=== PATIENT | female | born 1985 ===

== ENCOUNTER 2016-09-27 19:56 | Observation (INO) | payer MEDICAID, OTHER ==
[2016-09-27 20:12] VITALS: BMI 24.9
[2016-09-27] MEDS ORDERED: Sodium Chloride 0.9% 1,000 ML IV STA (20:38)
--- NOTE | 2016-09-27 20:45 | C.PDOC ---
History Of Present Illness 31 year old patient, with no significant past medical history, presents to the ED complaining of abdominal pain for the past 9 hours. Patient reports the pain began in the epigastric region, but now is mostly in the left lower quadrant. The pain is worse with movement and palpation. She notes the pain is severe. Patient also complains of 3 episodes of nausea and non-bloody vomiting. Her menstrual cycle is 2 weeks late. She took an at-home test today which was negative. She also took Imodium with no relief of symptoms. Patient denies any diarrhea, fever, vaginal bleeding, vaginal discharge, or back pain. Time Seen by Provider: 09/27/16 20:30 Chief Complaint (Nursing): Abdominal Pain History Per: Patient History/Exam Limitations: no limitations Onset/Duration Of Symptoms: Hrs (9 hours prior to arrival) Current Symptoms Are (Timing): Still Present Context: Other Severity: Severe Pain Scale Rating Of: 8 Location Of Pain/Discomfort: LLQ Radiation Of Pain To:: None Quality Of Discomfort: "Pain" Associated Symptoms: Nausea, Vomiting Exacerbating Factors: Movement, Other (palpation) Alleviating Factors: None Last Bowel Movement: Today Recent travel outside of the [place]: No Abnormal Vaginal Bleeding: No Past Medical History Reviewed: Historical Data, Nursing Documentation, Vital Signs Vital Signs: Last Vital Signs Temp 98.1 F 09/29/16 08:43 Pulse 97 H 09/29/16 08:43 Resp 18 09/29/16 08:43 BP 118/80 09/29/16 08:43 Pulse Ox 98 09/29/16 08:43 Family History: States: No Known Family Hx - Social History Hx Alcohol Use: No Hx Substance Use: No - Immunization History Hx Tetanus Toxoid Vaccination: Yes Hx Influenza Vaccination: Yes Hx Pneumococcal Vaccination: No Review Of Systems Except As Marked, All Systems Reviewed And Found Negative. Constitutional: Negative for: Fever Gastrointestinal: Positive for: Nausea, Vomiting, Abdominal Pain (LLQ). Negative for: Diarrhea Genitourinary: Negative for: Vaginal Discharge, Vaginal Bleeding Musculoskeletal: Negative for: Back Pain Physical Exam - Physical Exam Additional Physical Exam Comments: Constitutional: No acute distress. Head: Normocephalic. Atraumatic. Eyes: PERRL. ENT: Moist mucous membranes. Neck: Supple. Cardiovascular: Regular rate. Radial pulses 2+ bilaterally. Chest: No tenderness. Respiratory: Clear to auscultation bilaterally. GI: Soft. LLQ tenderness. Nondistended. Back: No tenderness. Musculoskeletal: No tenderness or swelling of extremities. Skin: No rash. Neurologic: Alert, no focal deficit. ED Course And Treatment - Laboratory Results Result Diagrams: 09/29/16 05:53 09/27/16 20:54 O2 Sat by Pulse Oximetry: 100 (RA) Pulse Ox Interpretation: Normal Medical Decision Making Medical Decision Making: Plan: * Labs * Transvaginal US * Morphine, IV fluids, Zofran Transvaginal US Read by Radiologist: Caridad Field MD FINDINGS: Uterus/cervix: No intrauterine gestation is identified on the submitted images. The cervix measures 3.1 cm in length, and is closed. Right ovary: The right ovary measures 2.8 cm in greatest dimension. Within the right adnexa is an additional focus of mixed echogenicity demonstrating color flow on Doppler interrogation and measuring 2.6 cm in greatest dimension. Of note, this was the point of maximal tenderness during the examination. Left ovary: A corpus luteal cyst is detected within the enlarged left ovary. Free fluid: Complex free fluid is identified within the pelvis. IMPRESSION: Limited evaluation secondary to patient's inability to tolerate examination secondary to pain, which may represent an ectopic , as detailed above. Please correlate with the serum beta-hCG and obstetrical evaluation Consulted OBGYN public relations supervisor Dr. Sparks who agrees this is concerning for ectopic, may also be ruptured cyst. She will observe patient, trend Hb and serial abdominal exams. Disposition - Disposition Disposition: HOSPITALIZED Disposition Time: 23:04 Condition: GOOD - Clinical Impression Clinical Impression: Abdominal pain during - Scribe Statement The provider has reviewed the documentation as recorded by the Monica Herrera Provider Attestation: All medical record entries made by the Jerseyibfranky were at my direction and personally dictated by me. I have reviewed the chart and agree that the record accurately reflects my personal performance of the history, physical exam, medical decision making, and the department course for this patient. I have also personally directed, reviewed, and agree with the discharge instructions and disposition.
[2016-09-27] MEDS ORDERED: Sodium Chloride 0.9% 1,000 ML ONE (20:53)
[2016-09-27] MEDS ORDERED: Morphine 4 MG/ML VIAL ONE (20:53)
[2016-09-27 21:05] LABS: BASO # 0.1 K/uL (0.0-0.2); BASO % 0.4 % (0.0-2.0); EOS % 0.1 % (0.0-4.0); HEMATOCRIT 37.8 % (34.0-47.0); LYMPH # 1.5 K/uL (1.0-4.3); LYMPH % 9.6 % (20.0-40.0); MEAN CELL VOLUME 84.5 fL (81.0-99.0); MEAN CORPUSCULAR HGB CONC 33.2 g/dL (33.0-37.0); MEAN PLATELET VOLUME 7.9 fL (7.2-11.7); MONO # 0.4 K/uL (0.0-0.8); MONO % 2.6 % (0.0-10.0); PLATELET COUNT 380 K/uL (130-400); RED CELL DISTRIBUTION WIDTH 15.3 % (11.5-14.5); WHITE BLOOD COUNT 15.9 K/uL (4.8-10.8)
[2016-09-27 21:17] LABS: CHLORIDE 96 mmol/L (98-107); SODIUM 133 mmol/L (132-148)
[2016-09-27 21:18] LABS: POTASSIUM 3.7 mmol/L (3.6-5.2)
[2016-09-27 21:19] LABS: RBC URINE 1 /hpf (0-3); URINE BACTERIA RARE (<OCC); URINE BILIRUBIN NEGATIVE (NEGATIVE); URINE COLOR Yellow (YELLOW); URINE GLUCOSE (UA) NORMAL (Normal); URINE KETONE TRACE mg/dL (NEGATIVE); URINE PROTEIN NEGATIVE (NEGATIVE); URINE UROBILINOGEN NORMAL mg/dL (0.2-1.0); WBC URINE 1 /hpf (0-5)
[2016-09-27 21:20] LABS: ALB/GLOB RATIO 1.6 (1.0-2.1); ALKALINE PHOSPHATASE 85 U/L (38-126); AST/SGOT 20 U/L (14-36); BILIRUBIN,TOTAL 0.2 mg/dL (0.2-1.3); BLOOD UREA NITROGEN 6 mg/dL (7-17); CARBON DIOXIDE 21 mmol/L (22-30); GFR AFRICAN-AMERICAN > 60; GLUCOSE,RANDOM 132 mg/dL (65-105); TOTAL PROTEIN 6.8 g/dL (6.3-8.3)
[2016-09-27 21:21] LABS: ALT/SGPT 21 U/L (9-52); CALCIUM 8.7 mg/dl (8.6-10.4)
[2016-09-27 21:21] LABS: URINE BLOOD NEGATIVE (NEGATIVE); URINE LEUKOCYTE ESTERASE NEGATIVE Leu/uL (Negative)
[2016-09-27] MEDS ORDERED: Iohexol 350mg/ml 100 ML ONE (21:47)
[2016-09-27 22:23] LABS: NEUTROPHIL 88 % (50-75); TOTAL CELLS COUNTED 100
--- NOTE | 2016-09-27 23:35 | CP.PCM.HP ---
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 Patient reports the pain began in the epigastric region, but now is mostly in the left lower quadrant. The pain is worse with movement and palpation. Patient also reports having spotting.last intercourse 1 week ago.She denies feeling light headed or dizzy.Denies palpitation or shortness of breath Pmh denies PSH csection OBGYN HX ; csectionx1; lmp 08/20/16 Social hx -past hx of smoking.stopped 3 months ago. Present on Admission - Present on Admission Any Indicators Present on Admission: No Review of Systems - Review of Systems All systems: reviewed and no additional remarkable complaints except - Cardiovascular Cardiovascular: absent: Chest Pain, Diaphoresis, Rapid Heart Rate - Respiratory Respiratory: absent: Cough, Dyspnea - Gastrointestinal Gastrointestinal: Abdominal Pain - Reproductive: Female Additional comments: DELAYED MENSES; POSITIVE URINE TEST - Musculoskeletal Musculoskeletal: absent: Back Pain, Numbness, Tingling - Integumentary Integumentary: absent: Rash, Wounds - Neurological Neurological: absent: Numbness, Tingling, Tremor, Vertigo, Weakness - Psychiatric Psychiatric: absent: Anxiety, Depression Past Patient History - Infectious Disease Hx of Infectious Diseases: None - Past Medical History & Family History Past Medical History?: Yes Past Family History: Reviewed and not pertinent - Past Social History Smoking Status: Former Smoker - CARDIAC Hx Cardiac Disorders: No - PULMONARY Hx Respiratory Disorders: No - NEUROLOGICAL Hx Neurological Disorder: No - RENAL Hx Chronic Kidney Disease: No - ENDOCRINE/METABOLIC Hx Endocrine Disorders: No - HEMATOLOGICAL/ONCOLOGICAL Hx Blood Disorders: No - MUSCULOSKELETAL/RHEUMATOLOGICAL Hx Musculoskeletal Disorders: No - GASTROINTESTINAL Hx Gastrointestinal Disorders: No - GENITOURINARY/GYNECOLOGICAL LMP:: 08/20/16 : 2 Para: 1 - PSYCHIATRIC Hx Anxiety: No Hx Sexual Abuse: No Hx Substance Use: No - SURGICAL HISTORY Hx Section: Yes - ANESTHESIA Hx Anesthesia: Yes Hx Anesthesia Reactions: No Meds Allergies/Adverse Reactions: Allergies Allergy/AdvReac Type Severity Reaction Status Date / Time No Known Allergies Allergy Verified 09/27/16 20:11 Physical Exam - Constitutional Appears: No Acute Distress - Respiratory Exam Respiratory Exam: Clear to Auscultation Bilateral, NORMAL BREATHING PATTERN - Cardiovascular Exam Cardiovascular Exam: REGULAR RHYTHM, +S1, +S2 - GI/Abdominal Exam GI & Abdominal Exam: Soft, Tenderness. absent: Distended, Guarding, Rebound, Rigid - Exam External exam: NORMAL EXTERNAL EXAM Speculum exam: absent: Cervical Discharge, Vaginal Discharge Bimanual exam: absent: Adenexal Mass, Uterine Tenderness - Extremities Exam Extremities exam: Negative for: calf tenderness - Back Exam Back exam: absent: CVA tenderness (L), CVA tenderness (R) - Neurological Exam Neurological exam: Alert, Oriented x3 - Psychiatric Exam Psychiatric exam: Normal Affect, Normal Mood - Skin Skin Exam: Intact, Normal Color, Warm Results - Vital Signs Recent Vital Signs: Last Vital Signs Temp 97.7 F 09/27/16 20:12 Pulse 93 H 09/27/16 20:12 Resp 20 09/27/16 20:12 BP 157/104 H 09/27/16 20:12 Pulse Ox 100 09/27/16 23:03 - Labs Result Diagrams: 09/27/16 20:54 09/27/16 20:54 - Imaging and Cardiology PELVIC ULTRASOUND Status: Report reviewed by me Additional comment: Transvaginal US Read by Radiologist: Caridad Field MD FINDINGS: Uterus/cervix: No intrauterine gestation is identified on the submitted images. The cervix measures 3.1 cm in length, and is closed. Right ovary: The right ovary measures 2.8 cm in greatest dimension. Within the right adnexa is an additional focus of mixed echogenicity demonstrating color flow on Doppler interrogation and measuring 2.6 cm in greatest dimension. Of note, this was the point of maximal tenderness during the examination. Left ovary: A corpus luteal cyst is detected within the enlarged left ovary. Free fluid: Complex free fluid is identified within the pelvis. IMPRESSION: Limited evaluation secondary to patient's inability to tolerate examination secondary to pain, which may represent an ectopic , as detailed above. Please correlate with the serum beta-hCG and obstetrical evaluation Assessment & Plan - Assessment and Plan (Free Text) Assessment: 31 y/o with lmp 08/20/16 in er with c/o left lower quadrant pain patient with no signs of acute abdomen.Vital signs [place] [facility] [place] S/p transvaginal ultrasound which was ready by V rad and showed complex free fluid in cul de sac, left ovary with corpus luteum cyst and 2.8 cm cyst in right adnexa with blood flow. Patient presenting to er with c/o left lower quadrant pain.On exam no pain on right side of abdomen or pelvic and bhcg <1500 With current clinical presentation differential includes hemorrhagic cyst versus ectopic .Patient desires this .Discussed the possible causes of pain with patient.Discussed doing laparoscopy with emb versus observation and repeat labs and then repeat scan.risks and benefits of ecah discussed.Patient desires to keep the and wants to do surgery only as last resort. Plan-admit patient -npo -serial cbc and abdominal exams -vitals signs q 2 hours -discussed with patient that if drop in hemoglobin noted or change in vitals sign or pain worsens the would recommend diagnostic laparoscopy -repeat hcg in am and await from reading of ultrasound in am. Decision To Admit - Pt Status Changed To: Hospital Disposition Of: Observation - InPatient: Physician Admission Certification:: based on my assessment of the patient in the ER , I recommend admission for observation - . 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
[2016-09-28] MEDS: Lactated Ringer's 1,000 ML IV SCH ×4 (00:10→21:06)
[2016-09-28 03:33] LABS: BASO # 0.1 K/uL (0.0-0.2); BASO % 0.5 % (0.0-2.0); EOS # 0.1 K/uL (0.0-0.7); EOS % 0.6 % (0.0-4.0); HEMATOCRIT 35.7 % (34.0-47.0); LYMPH # 2.8 K/uL (1.0-4.3); LYMPH % 22.5 % (20.0-40.0); MEAN CELL VOLUME 84.9 fL (81.0-99.0); MEAN CORPUSCULAR HEMOGLOBIN 27.2 pg (27.0-31.0); MEAN CORPUSCULAR HGB CONC 32.1 g/dL (33.0-37.0); MEAN PLATELET VOLUME 7.8 fL (7.2-11.7); MONO # 0.8 K/uL (0.0-0.8); MONO % 6.3 % (0.0-10.0); RED CELL DISTRIBUTION WIDTH 14.9 % (11.5-14.5); WHITE BLOOD COUNT 12.5 K/uL (4.8-10.8)
[2016-09-28 06:14] LABS: HEMATOCRIT 35.8 % (34.0-47.0); MEAN CORPUSCULAR HEMOGLOBIN 27.8 pg (27.0-31.0); MEAN CORPUSCULAR HGB CONC 32.7 g/dL (33.0-37.0); MEAN PLATELET VOLUME 7.8 fL (7.2-11.7); RED CELL DISTRIBUTION WIDTH 15.1 % (11.5-14.5); WHITE BLOOD COUNT 12.4 K/uL (4.8-10.8)
[2016-09-28 09:56] LABS: BASO # 0.1 K/uL (0.0-0.2); BASO % 0.8 % (0.0-2.0); EOS # 0.1 K/uL (0.0-0.7); EOS % 1.2 % (0.0-4.0); HEMATOCRIT 35.5 % (34.0-47.0); LYMPH # 2.6 K/uL (1.0-4.3); LYMPH % 24.7 % (20.0-40.0); MEAN CELL VOLUME 84.1 fL (81.0-99.0); MEAN CORPUSCULAR HEMOGLOBIN 27.9 pg (27.0-31.0); MEAN CORPUSCULAR HGB CONC 33.1 g/dL (33.0-37.0); MEAN PLATELET VOLUME 7.9 fL (7.2-11.7); MONO # 0.7 K/uL (0.0-0.8); MONO % 6.7 % (0.0-10.0); RED CELL DISTRIBUTION WIDTH 15.2 % (11.5-14.5); WHITE BLOOD COUNT 10.5 K/uL (4.8-10.8)
--- NOTE | 2016-09-28 10:49 | US ---
HISTORY: abdominal pain in , assess cervix COMPARISON: None available. TECHNIQUE: Transvaginal Technically limited examination due to patient pain. FINDINGS: UTERUS: Measures 7.9 x 9.1 x 5.2 cm. Normal in size and appearance. No fibroid or other mass lesion seen. ENDOMETRIUM: Measures 8 mm in diameter. No intrauterine gestation identified. CERVIX: No cervical abnormality identified. RIGHT OVARY: Measures 2.8 x 2.0 x 2.4 cm. No solid mass. Normal flow. Right adnexal mass separate from the ovary, 2.5 x 2.7 x 2.2 cm. This is atypical demonstrating marked posterior acoustic shadowing on some of the images and yet soft tissue echogenicity on another image. Evaluation was limited. This was the point of maximal tenderness. There was some internal vascularity demonstrated though no peripheral hypervascularity. . The possibility that this represents an ectopic gestation should be considered. LEFT OVARY: Measures 3.9 x 2.8 x 4.2 cm. No solid mass. Normal flow. Probable corpus luteum noted with characteristic peripheral hypervascularity. FREE FLUID: Complex fluid in cul-de-sac. Possibility that this represents blood products should be considered. OTHER FINDINGS: None. IMPRESSION: Limited examination. No intrauterine gestation. Atypical right adnexal mass. Must consider the possibility of ectopic gestation. Complex fluid in cul-de-sac which may represent blood products indicating a potential ruptured ectopic . Probable left ovarian corpus luteum. Preliminary interpretation of this examination was reported by [employer] at 10:47 p.m. on 09/27/2016. There is concurrence of this report with the preliminary interpretation.
--- NOTE | 2016-09-28 14:44 | CP.PCM.PN ---
Subjective - Date & Time of Evaluation Date of Evaluation: 09/28/16 Time of Evaluation: 12:35 - Subjective Subjective: Patient is Urdu-speaking only: PGY-1, Peng Gonzalez DO served as client support representative Patient received in bed, in room 451 in [facility]. Reports LLQ pain still present; now pain scale 6/10 - has received no pain medications. (+) nausea; no vomiting today. Objective - Vital Signs/Intake and Output Vital Signs (last 24 hours): Temp Pulse Resp BP Pulse Ox 97.4 F L 68 20 131/89 100 09/28/16 05:35 09/28/16 05:35 09/28/16 05:35 09/28/16 05:35 09/28/16 05:35 - Medications Medications: Current Medications Lactated Ringer's (Lactated Ringer's) 1,000 mls @ 125 mls/hr IV .Q8H [facility] Last Admin: 09/28/16 00:10 Dose: 125 mls/hr - Labs Labs: 09/28/16 09:50 - Constitutional Appears: Well, No Acute Distress - Head Exam Head Exam: NORMAL INSPECTION - Eye Exam Eye Exam: Normal appearance - Neck Exam Neck Exam: Full ROM - Respiratory Exam Respiratory Exam: NORMAL BREATHING PATTERN - Cardiovascular Exam Cardiovascular Exam: REGULAR RHYTHM - Exam Additional comments: (+) cervical motion tenderness. (+) mid position uterus, 10 weeks, soft, (+) mild uterine tenderness. (+) posterior fullness with tenderness. (+) left adnesal fullness with tenderness. No right adnexal mass or tenderness. No vaginal bleeding noted. - Extremities Exam Extremities Exam: Full ROM - Back Exam Back Exam: NORMAL INSPECTION - Neurological Exam Neurological Exam: Alert, Awake, Normal Gait, Oriented x3 - Psychiatric Exam Psychiatric exam: Normal Affect, Normal Mood - Skin Skin Exam: Dry, Normal Color, Warm Assessment and Plan - Assessment and Plan (Free Text) Assessment: Ultrasound images and report reviewed by me personally: significant for "No intrauterine gestation" .... Atypical right adnexal mass (Right adnexal mass separate from the ovary, 2.5 x 2.7 x 2.2 cm; ... atypical demonstrating marked posterior acoustic shadowing on some of the images and yet soft tissue echogenicity on another image. ... The possibility that this represents an ectopic gestation should be considered. ... Complex fluid in the cul-de-sac. Possibility that this represents blood products should be considered". Also reviewed serial CBCs - H/H stable. Patient counseled on possibility of ectopic . Options discussed were medical treatment with methotrexate versus surgery. In light of patient's pain and the atypical findings on ultrasound, surgery was recommended as the preferred route in the next step of her management. Patient expressed an understanding and agrees to surgery. R/B/C including but not limited to failed laparoscopy with conversion to open laparotomy, infection, hemorrhage, blood transfusion, repair of any damage to internal organs were discussed. Patient's questions were answered. Patient asked that this also be discussed with her via a telephone conversation: Dr. Gonzalez complied, in the presence of the patient. Patient is NPO; not eaten x 2 days. Plan: 1) Continue NPO status 2) faculty i on call medical assistant to O.R. 3) Mefoxin 2 gramms, within 1 hour prior to incision 4) story to gravity
[2016-09-28] MEDS ORDERED: cefOXitin IV 2 gm in Dextrose 50 ML IVPB ONE (15:08)
[2016-09-28] MEDS ORDERED: Propofol 10 mg/ml Inj (20 ML) ONE (16:43)
[2016-09-28] MEDS ORDERED: Midazolam 2 MG/2 ML VIAL ONE (16:43)
[2016-09-28] MEDS ORDERED: Lactated Ringer's 1,000 ML IV ONE ×2 (16:55→17:50)
[2016-09-28] MEDS ORDERED: Bupivacaine HCl 0.25% PF (10 ml) Inj ONE ×2 (17:29)
[2016-09-28] MEDS ORDERED: Rocuronium 10 mg/ml (5 ml) ONE (18:13)
[2016-09-28] MEDS ORDERED: DiphenhydrAMINE 50 mg/ml Inj IVP PRN (18:26)
[2016-09-28] MEDS ORDERED: Dexamethasone 4 mg/1 ml IVP PRN (18:26)
[2016-09-28] MEDS ORDERED: HYDROmorphone 0.5 mg/0.5 ml ISec IVP PRN (18:26)
[2016-09-28] MEDS ORDERED: Lactated Ringer's 1,000 ML IV SCH (18:30)
--- NOTE | 2016-09-28 18:55 | PCM.SURG1 ---
Surgeon's Initial Post Op Note - Surgeon's Notes Surgeon: Ammy Alfred MD Group Burner Machine: Nicho Hoyos MD Type of Anesthesia: General Endo Anesthesia Administered By: Dr. Cash Pre-Operative Diagnosis: Abdominal pain. Hemoperitoneum. of unknown location - Rule out ectopic Operative Findings: EUA: anteverted uterus 10 weeks, mobile. Fullness in posteriorly with left adnexal fullness. Uterus sounded to 10 cm. At laparoscopy: Normal uterus, adherent anteriorly to anterior abdominal wall. Normal ovaries and grossly normal fallopian tubes bilaterally; left fallopian tube mildly dilated and slightly bluish in mid-isthmic portion. (+) hemoperitoneum of approximately 50 cc, admixed with possible products of conception. Grossly normal upper abdominal organs Post-Operative Diagnosis: Possible aborted left ectopic ; hemoperitoneum. Pelvic peritoneal adhesions Operation Performed: Laparoscopy with evacuation of possible products of conception and hemoperitoneum Specimen/Specimens Removed: Products of conception Estimated Blood Loss: EBL {In ML}: 50 (U.O. 900 cc, clear urine. 1300 cc LR) Blood Products Given: N/A Drains Used: No Drains Post-Op Condition: Good Date of Surgery/Procedure: 09/28/16 Time of Surgery/Procedure: 18:25
[2016-09-29] MEDS: Oxycodone/Acetaminophen 5/325 mg Tab PO PRN ×2 (04:50→13:41)
[2016-09-29 06:01] LABS: HEMATOCRIT 34.3 % (34.0-47.0); MEAN CELL VOLUME 84.5 fL (81.0-99.0); MEAN CORPUSCULAR HEMOGLOBIN 27.7 pg (27.0-31.0); MEAN CORPUSCULAR HGB CONC 32.8 g/dL (33.0-37.0); MEAN PLATELET VOLUME 7.7 fL (7.2-11.7); RED CELL DISTRIBUTION WIDTH 15.2 % (11.5-14.5); WHITE BLOOD COUNT 10.9 K/uL (4.8-10.8)
--- NOTE | 2016-09-29 07:54 | CP.PCM.PN ---
Subjective - Date & Time of Evaluation Date of Evaluation: 09/29/16 Time of Evaluation: 07:50 - Subjective Subjective: Sara Brown serves as nurse instructor Patient received in bed, room 451, asleep and easily awakened. also present Patient reports incisional pain, pain scale 4/10; and discomfort upon urination. Has not been out of bed to ambulate; not eaten anything before and now after surgery. Denies nausea or vomiting. Not very hungry Objective - Vital Signs/Intake and Output Vital Signs (last 24 hours): Temp Pulse Resp BP Pulse Ox 97.7 F 84 20 116/69 99 09/29/16 00:00 09/29/16 00:00 09/29/16 00:00 09/29/16 00:00 09/29/16 00:00 - Medications Medications: Current Medications Lactated Ringer's (Lactated Ringer's) 1,000 mls @ 125 mls/hr IV .Q8H [facility] Last Admin: 09/28/16 21:06 Dose: 125 mls/hr Lactated Ringer's (Lactated Ringer's) 1,000 mls @ 150 mls/hr IV .Q6H40M [facility] Last Admin: 09/28/16 21:07 Dose: 150 mls/hr Ibuprofen (Motrin Tab) 600 mg PO Q6 PRN PRN Reason: Pain, Mild (1-3) Oxycodone/Acetaminophen (Percocet 5/325 Mg Tab) 1 tab PO Q4H PRN PRN Reason: Pain, moderate (4-7) Stop: 10/01/16 18:47 Last Admin: 09/29/16 04:50 Dose: 1 tab - Labs Labs: 09/29/16 05:53 - Constitutional Appears: Well, No Acute Distress - Head Exam Head Exam: NORMAL INSPECTION - Eye Exam Eye Exam: Normal appearance - Neck Exam Neck Exam: Full ROM - Respiratory Exam Respiratory Exam: Clear to Ausculation Bilateral, NORMAL BREATHING PATTERN - Cardiovascular Exam Cardiovascular Exam: REGULAR RHYTHM - GI/Abdominal Exam GI & Abdominal Exam: Normal Bowel Sounds Additional comments: Soft, non distended. Laparoscopy sites with dressings are clean and dry. - Neurological Exam Neurological Exam: Alert, Awake, Oriented x3 - Psychiatric Exam Psychiatric exam: Normal Affect, Normal Mood - Skin Skin Exam: Dry, Normal Color, Warm Assessment and Plan - Assessment and Plan (Free Text) Assessment: Maryuri Cool R.N. serves as nurse instructor Findings at surgery explained to patient and : removal of blood clots and possibly products of conception. It was also explained that both tubes appeared grossly normal, though there was one small area of slight swelling of the left tube. At the same time, today's quantitative HCG level has increased to a level that warrants obtaining serial quantitative levels as patient desires . It was also explained that the possibility of an ectopic still exits, and the importance of follow up every 48 hours was stressed. Patient was also counseled that if she experiences excruciating pain, shoulder pain, loss of consciousness, or general overall malaise, to return to E.D. Patient and expressed an understanding; all of their questions and concerns were answered and addressed. Plan: 1) serum progesterone level now 2) Encourage eating 3) Encourage ambulation 4) Upon discharge, follow up E.D. Saturday and Saturday for quantative HCG and progesterone levels. 5) Pain medications upon discharge: motrin 600 mg 1 tab every 6 hours, PRN
--- NOTE | 2016-09-29 08:09 | CP.PCM.DIS ---
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 Priority: Low Diagnosis Date: 09/28/16 Hospital Course - Lab Results Lab Results: Most Recent Lab Values WBC 10.9 K/uL (4.8-10.8) H 09/29/16 05:53 RBC 4.06 Mil/uL (3.80-5.20) 09/29/16 05:53 Hgb 11.2 g/dL (11.0-16.0) 09/29/16 05:53 Hct 34.3 % (34.0-47.0) 09/29/16 05:53 MCV 84.5 fL (81.0-99.0) 09/29/16 05:53 MCH 27.7 pg (27.0-31.0) 09/29/16 05:53 MCHC 32.8 g/dL (33.0-37.0) L 09/29/16 05:53 RDW 15.2 % (11.5-14.5) H 09/29/16 05:53 Plt Count 318 K/uL (130-400) 09/29/16 05:53 MPV 7.7 fL (7.2-11.7) 09/29/16 05:53 Neut % (Auto) 66.6 % (50.0-75.0) 09/28/16 09:50 Lymph % (Auto) 24.7 % (20.0-40.0) 09/28/16 09:50 [place] % (Auto) 6.7 % (0.0-10.0) 09/28/16 09:50 Eos % (Auto) 1.2 % (0.0-4.0) 09/28/16 09:50 Baso % (Auto) 0.8 % (0.0-2.0) 09/28/16 09:50 Neut # 7.0 K/uL (1.8-7.0) 09/28/16 09:50 Lymph # 2.6 K/uL (1.0-4.3) 09/28/16 09:50 [place] # 0.7 K/uL (0.0-0.8) 09/28/16 09:50 Eos # 0.1 K/uL (0.0-0.7) 09/28/16 09:50 Baso # 0.1 K/uL (0.0-0.2) 09/28/16 09:50 Neutrophils % (Manual) 88 % (50-75) H 09/27/16 20:54 Lymphocytes % (Manual) 10 % (20-40) L 09/27/16 20:54 Monocytes % (Manual) 2 % (0-10) 09/27/16 20:54 Platelet Estimate Normal (NORMAL) 09/27/16 20:54 Sodium 133 mmol/L (132-148) 09/27/16 20:54 Potassium 3.7 mmol/L (3.6-5.2) 09/27/16 20:54 Chloride 96 mmol/L (98-107) L 09/27/16 20:54 Carbon Dioxide 21 mmol/L (22-30) L 09/27/16 20:54 Anion Gap 20 (10-20) 09/27/16 20:54 BUN 6 mg/dL (7-17) L 09/27/16 20:54 Creatinine 0.5 MG/DL (0.7-1.2) L 09/27/16 20:54 Est GFR ( Amer) > 60 09/27/16 20:54 Est GFR (Non-Af Amer) > 60 09/27/16 20:54 Random Glucose 132 mg/dL (65-105) H 09/27/16 20:54 Calcium 8.7 mg/dl (8.6-10.4) 09/27/16 20:54 Total Bilirubin 0.2 mg/dL (0.2-1.3) 09/27/16 20:54 AST 20 U/L (14-36) 09/27/16 20:54 ALT 21 U/L (9-52) 09/27/16 20:54 Alkaline Phosphatase 85 U/L (38-126) 09/27/16 20:54 Total Protein 6.8 g/dL (6.3-8.3) 09/27/16 20:54 Albumin 4.2 g/dL (3.5-5.0) 09/27/16 20:54 Globulin 2.6 gm/dL (2.2-3.9) 09/27/16 20:54 Albumin/Globulin Ratio 1.6 (1.0-2.1) 09/27/16 20:54 Lipase 72 U/L (23-300) 09/27/16 20:54 Beta HCG, Quant 340.04 mIU/ML 09/29/16 05:53 Urine Color Yellow (YELLOW) 09/27/16 21:21 Urine Clarity Clear (Clear) 09/27/16 21:21 Urine pH 7.0 (5.0-8.0) 09/27/16 21:21 Ur Specific [place] 1.011 (1.003-1.030) 09/27/16 21:21 Urine Protein Negative mg/dL (NEGATIVE) 09/27/16 21:21 Urine Glucose (UA) Normal mg/dL (Normal) 09/27/16 21:21 Urine Ketones Trace mg/dL (NEGATIVE) 09/27/16 21:21 Urine Blood Negative (NEGATIVE) 09/27/16 21:21 Urine Nitrate Negative (NEGATIVE) 09/27/16 21:21 Urine Bilirubin Negative (NEGATIVE) 09/27/16 21:21 Urine Urobilinogen Normal mg/dL (0.2-1.0) 09/27/16 21:21 Ur Leukocyte Esterase Negative F[place]ad/uL (Negative) 09/27/16 21:21 Urine WBC (Auto) 1 /hpf (0-5) 09/27/16 21:21 Urine RBC (Auto) 1 /hpf (0-3) 09/27/16 21:21 Ur Squamous Epith Cells 5 /hpf (0-5) 09/27/16 21:21 Urine Bacteria Rare (<OCC) 09/27/16 21:21 Blood Type O POSITIVE 09/28/16 00:17 Antibody Screen Negative 09/28/16 00:17 - Hospital Course Hospital Course: Patient admitted for observation for possible ectopic . Transvaginal ultrasound with findings of mixed tissue in cul-de-sac suggestive of ectopic . Based on these findings, quantitative HCG 92 mIU/mL and abdominal pain 01/31, patient counseled for surgery. Patient agreed and underwent uneventful laparoscopy 09/28/16 (see operative note) with evacuation of blood clots and possible products of conception. Post operatively patient's quantitative HCG level increased to 342 MIUM/mL. Patient counseled on possibility of intrauterine ; however, possibility of ectopic still exists. To this end, patient to follow up with serial quantitative HCG level every 48 hours until can be established as intrauterine or ectopic. In the unlikely event ectopic is determined, patient was counseled on methotrexate as an option for additional management. Patient expressed an understanding and agrees. Patient and had all questions answered. - Date & Time of H&P Date of H&P: 09/27/16 Time of H&P: 23:50 Discharge Exam - Head Exam Head Exam: NORMAL INSPECTION - Eye Exam Eye Exam: Normal appearance - Respiratory Exam Respiratory Exam: NORMAL BREATHING PATTERN - Cardiovascular Exam Cardiovascular Exam: REGULAR RHYTHM Additional comments: (+) ABS. Soft, non distended. laparoscopy sites with dressings are dry. - GI/Abdominal Exam GI & Abdominal Exam: Normal Bowel Sounds, Soft - Psychiatric Exam Psychiatric exam: Normal Affect, Normal Mood - Skin Skin Exam: Dry, Intact, Normal Color, Warm Discharge Plan - Follow Up Plan Condition: GOOD Disposition: HOME/ ROUTINE Patient education suggested?: Yes Instructions: Acute Abdominal Pain (GEN) Additional Instructions: 2) of unknown location - follow up E.D. Saturday and Saturday for blood work. Return to E.D. for excruciating abdominal pain, shoulder pain, loss of consciousness. 3) Hemoperitoneum - nothing to do. Follow up blood work. Return to E.D. for abdominal pain, loss of consciousness 4) Pelvic adhesions - nothing to do 5) Abdominal pain. monitor for nature and quality. Rx: Motrin 600 mg 1 tab by mouth every 6 hours as needed. 6) Post operative state: No heavy lifting x 2 weeks, Nothing per vagina x 2 weeks. May shower and ambulate.
[2016-09-29 08:11] VITALS: BP 118/80; PULSE 97; RESP 18; TEMP 98.1
[2016-09-29 10:24] VITALS: O2SAT 100
--- NOTE | 2016-10-01 10:09 | OP ---
PROCEDURE DATE: 09/28/2016 SURGEON: Ammy Alfred MD PYRIDINE OPERATOR: Nicho Hoyos MD ANESTHESIA: General with endotracheal intubation. ANESTHESIOLOGIST: Dr. Stover. PREOPERATIVE DIAGNOSES: Abdominal pain with hemoperitoneum; of unknown location, rule out ectopic . POSTOPERATIVE DIAGNOSES: Possible aborted left ectopic , hemoperitoneum and pelvic peritoneal adhesions. OPERATIVE FINDINGS: Examination under anesthesia revealed an anteverted uterus , approximately 10 weeks in size and mobile. There was fullness posteriorly with left adnexal fullness. The uterus sounded to 10 cm. At laparoscopy normal uterus, which was adherent anteriorly to the anterior abdominal wall, normal ovaries bilaterally and grossly normal fallopian tubes bilaterally. The left fallopian tube was mildly dilated in the midisthmic portion and slightly bluish in that area. A hemoperitoneum of approximately 50 mL admixed with possible products of conception. Grossly normal upper abdominal organs. OPERATION PERFORMED: Laparoscopy with evacuation of possible products of conception and hemoperitoneum. SPECIMENS: Products of conception. ESTIMATED BLOOD LOSS: 50 mL. URINE OUTPUT: 900 mL of clear urine. INTRAVENOUS FLUIDS: 1300 mL of lactated Ringers. BLOOD PRODUCTS GIVEN: None. COMPLICATIONS: None. PROCEDURE: The patient is predominantly Polish speaking; Dr. Peng Gonzalez, PGY- 1, served as pipe fitter welding for obtaining consent and throughout the patient encounter leading up to surgery. The patient was taken to the operating room after having obtained informed consent for the anticipated procedure. This included a discussion of laparoscopy with the possibility of converting to laparotomy, potential for any infection requiring antibiotics; potential for hemorrhage requiring blood transfusion, repair of any damage to internal organs. The patient expressed an understanding; all her questions and concerns were answered and addressed. Consents were signed, dated, witnessed and placed in the chart. The patient was transported to the main OR; she received Mefoxin 2 grams and a Galloway catheter had been inserted. In the operating room she was placed on the operating room table in a supine position where general anesthesia was administered without incident. She was then repositioned into the dorsal lithotomy position; and her legs were placed in the Teodoro stirrups. The patient was prepped and subsequently draped in the usual sterile fashion. Examination under anesthesia was performed - findings as above. A weighted speculum was then placed in the posterior vaginal vault. Using the Calles retractor, the cervix was visualized and grasped with a single-toothed tenaculum. The uterus was sounded to 10 cm. A HUMI uterine manipulator was inserted without incident. Attention was then directed to the patient's abdomen. Using an 11 blade scalpel, a stab wound was made in the umbilical fold. The Veress needle was inserted and a test of placement revealed no blood , urine or feces. A pnuemoperitoneum was then created using 15 cm of water maximum. A 5 mm trocar was then inserted in the umbilical fold. The camera was inserted and confirmation of entry into the pelvic cavity was confirmed. The pneumoperitoneum was maintained via insufflation. A 5 mm trocar was then placed under direct visualization in the right lower quadrant. Using a blunt probe and with elevation of the uterus, the right fallopian tube and left fallopian tube were visualized with the findings as above. As there was no evidence of any active bleeding; in addition to grossly normal appearing fallopian tubes, and the findings of the blood clots and possible products of conception in the posterior cul-de-sac, the impression was that of an aborted left ectopic with good hemostasis. The products of conception were evacuated and submitted to pathology for further confirmation. Copious irrigation was performed. Evaluation of the upper abdominal organs revealed normal findings. Attention then redirected to the pelvic cavity, all instruments were removed under direct visualization. The pneumoperitoneum was allowed to escape; the right, left lower quadrant and umbilical ports were reapproximated using 4-0 Monocryl in a subcuticular manner. Steri-Strips were applied and a dressings were applied. Attention was then directed to the vagina. Upon removal of the HUMI, the anterior lip of the cervix was noted to be bleeding. Hemostasis was assured using 2-0 chromic in a running interlocking fashion. Adequate hemostasis was assured. All instruments were removed. The Galloway catheter was also removed in the operating room. The patient was then repositioned into a dorsal supine position. She was extubated, allowed to arise from anesthesia and transferred to the recovery room in stable condition. Dr. Nicho Hoyos was present throughout the entire procedure from beginning to end. His surgical expertise was necessary for 1) adequate visualization of the operative field at all times; 2) assuring hemostasis. Ammy Anish Alfred MD cc: [id number] TT: 09/28/2016 22:14:13 karri VILLALTA
== END 2016-09-29 14:34 | disposition home or self-care (01) ==
LOC: C.ER 19:56 → C.9E 23:04 → C.3T 23:51 → C.9E 23:51 → C.4M 09-28 00:01
PROVIDERS: ADMIT Student in an Organized Health Care Education/Training Program; ATTEND Student in an Organized Health Care Education/Training Program
DX: O03.9 Complete or unspecified spontaneous abortion without complication (principal); Z87.891 Personal history of nicotine dependence; N73.6 Female pelvic peritoneal adhesions (postinfective); K66.1 Hemoperitoneum
CPT/HCPCS: 36415; 59812; 76830; 80053; 81001; 83690; 84144; 84702; 85025; 85027; 86850; 86900; 87086; 88305; 96361; 96365; 96375; 96376; 99283; G0378; J0694; J1885; J2250; J2270; J2405; J2704; J3010; J7040; J7120

== ENCOUNTER 2016-10-01 07:55 | Emergency (ER) | payer SELFPAY ==
[2016-10-01 07:56] VITALS: BMI 24.9
[2016-10-01 08:05] VITALS: O2SAT 100
[2016-10-01 08:32] LABS: BASO % 0.5 % (0.0-2.0); EOS # 0.2 K/uL (0.0-0.7); EOS % 2.4 % (0.0-4.0); HEMATOCRIT 37.3 % (34.0-47.0); LYMPH # 1.8 K/uL (1.0-4.3); LYMPH % 21.5 % (20.0-40.0); MEAN CORPUSCULAR HEMOGLOBIN 27.5 pg (27.0-31.0); MEAN CORPUSCULAR HGB CONC 32.4 g/dL (33.0-37.0); MEAN PLATELET VOLUME 7.7 fL (7.2-11.7); MONO # 0.6 K/uL (0.0-0.8); RED CELL DISTRIBUTION WIDTH 15.2 % (11.5-14.5); WHITE BLOOD COUNT 8.4 K/uL (4.8-10.8)
[2016-10-01 08:41] LABS: CHLORIDE 100 mmol/L (98-107); SODIUM 137 mmol/L (132-148)
--- NOTE | 2016-10-01 08:42 | C.PDOC ---
History Of Present Illness 31-year-old female, (), presents to the emergency department requesting a repeat beta count. Patient states she was seen by KRISHNA, diagnosed with possible ectopic and had a laproscopic procedure. States her pain has improved, but has some residual "soreness" to left suprapubic region. Patient denies nausea/vomiting, vaginal bleed, back pain, dizziness, or any other associated symptoms. No other complaints at this time. No meds taken for pain. Time Seen by Provider: 10/01/16 08:07 Chief Complaint (Nursing): Medical Clearance History Per: Patient History/Exam Limitations: no limitations Onset/Duration Of Symptoms: Days Current Symptoms Are (Timing): Still Present Past Medical History Reviewed: Historical Data, Nursing Documentation, Vital Signs Vital Signs: Last Vital Signs Temp 98 F 10/01/16 10:03 Pulse 74 10/01/16 10:03 Resp 20 10/01/16 10:03 BP 138/92 H 10/01/16 10:03 Pulse Ox 100 10/01/16 10:03 Family History: States: Unknown Family Hx - Social History Hx Alcohol Use: No Hx Substance Use: No - Immunization History Hx Tetanus Toxoid Vaccination: Yes Hx Influenza Vaccination: Yes Hx Pneumococcal Vaccination: No Review Of Systems Except As Marked, All Systems Reviewed And Found Negative. Constitutional: Negative for: Fever Cardiovascular: Negative for: Chest Pain, Palpitations Respiratory: Negative for: Shortness of Breath Gastrointestinal: Negative for: Nausea, Vomiting Genitourinary: Negative for: Vaginal Bleeding Musculoskeletal: Negative for: Back Pain Skin: Negative for: Rash Neurological: Negative for: Weakness, Numbness, Headache, Dizziness Physical Exam - Physical Exam Appears: Non-toxic, No Acute Distress Skin: Warm, Dry, No Rash Head: Atraumatic, Normacephalic Eye(s): bilateral: Normal Inspection, EOMI Nose: Normal Oral Mucosa: Moist Lips: Normal Appearing Neck: Normal ROM Chest: Symmetrical Cardiovascular: Rhythm Regular Respiratory: Normal Breath Sounds, No Accessory Muscle Use Gastrointestinal/Abdominal: Soft, Tenderness (left-sided pelvic), No Guarding, No Rebound, Other (Dressing in place over incision sites x 3. No erythema or discharge notes through dressing. ) Back: No CVA Tenderness, No Vertebral Tenderness Extremity: Normal ROM Neurological/Psych: Oriented x3, Normal Speech ED Course And Treatment - Laboratory Results Result Diagrams: 10/01/16 08:26 10/01/16 08:26 O2 Sat by Pulse Oximetry: 100 Progress Note: Plan: Pt refused pain medication. Beta HCH. CMP, Progesterone. CBC. Urine Culture. HCG/Urinalysis. Reassess and Disposition. Dr Beckwith discussed case with Dr Alfred who is aware Beta HCG is elevated and instructed to return to ER in 3 days, no US needed. Pt was given this information and reiterates understanding . Disposition - Disposition Disposition: HOME/ ROUTINE Disposition Time: 09:51 Condition: STABLE Additional Instructions: Return to ER in 3 days or sooner if symptoms persist or worsen. Instructions: Ectopic (ED) Print Language: SERBIAN - Clinical Impression Clinical Impression: of unknown anatomic location - Scribe Statement The provider has reviewed the documentation as recorded by the Scribfranky James All medical record entries made by the Jerseyibfranky were at my direction and personally dictated by me. I have reviewed the chart and agree that the record accurately reflects my personal performance of the history, physical exam, medical decision making, and the department course for this patient. I have also personally directed, reviewed, and agree with the discharge instructions and disposition.
[2016-10-01 08:43] LABS: AST/SGOT 41 U/L (14-36); BILIRUBIN,TOTAL 0.6 mg/dL (0.2-1.3); CARBON DIOXIDE 23 mmol/L (22-30); GFR AFRICAN-AMERICAN > 60
[2016-10-01 08:44] LABS: ALB/GLOB RATIO 1.5 (1.0-2.1); ALKALINE PHOSPHATASE 72 U/L (38-126); ALT/SGPT 46 U/L (9-52); BLOOD UREA NITROGEN 11 mg/dL (7-17); CALCIUM 8.3 mg/dl (8.6-10.4); GLUCOSE,RANDOM 85 mg/dL (65-105); TOTAL PROTEIN 6.6 g/dL (6.3-8.3)
[2016-10-01 09:33] LABS: RBC URINE 133 /hpf (0-3); URINE BILIRUBIN NEGATIVE (NEGATIVE); URINE BLOOD 2+ (NEGATIVE); URINE COLOR Yellow (YELLOW); URINE GLUCOSE (UA) NORMAL (Normal); URINE KETONE NEGATIVE (NEGATIVE); URINE LEUKOCYTE ESTERASE TRACE Leu/uL (Negative); URINE PROTEIN NEGATIVE (NEGATIVE); URINE UROBILINOGEN NORMAL mg/dL (0.2-1.0); WBC URINE 6 /hpf (0-5)
[2016-10-01 10:04] VITALS: BP 138/92; PULSE 74; RESP 20; TEMP 98
== END 2016-10-01 10:05 | disposition home or self-care (01) ==
LOC: C.ER 07:55
DX: O26.899 Other specified pregnancy related conditions, unspecified trimester (principal); Z3A.00 Weeks of gestation of pregnancy not specified

== ENCOUNTER 2016-10-03 07:42 | Emergency (ER) | payer SELFPAY ==
[2016-10-03 07:53] VITALS: BMI 26.2
[2016-10-03 07:54] VITALS: PULSE 84; RESP 18
--- NOTE | 2016-10-03 08:00 | C.PDOC ---
History Of Present Illness 31 yr old female with , presents to the ER for a repeat BETA quant. Patient was seen on 10/01/16 and had a BETA quant of 535. Patient also had a laparoscopic surgery by Dr. Alfred on 09/28/16 for an ectopic . Patient denies fever, nausea, vomiting, abdominal pain, diarrhea, constipation, dysuria, weakness or numbness. Time Seen by Provider: 10/03/16 07:46 Chief Complaint (Nursing): Abnormal Labs History Per: Patient History/Exam Limitations: no limitations Onset/Duration Of Symptoms: Days Past Medical History Reviewed: Historical Data, Nursing Documentation, Vital Signs Vital Signs: Last Vital Signs Temp 97.3 F L 10/03/16 14:30 Pulse 84 10/03/16 14:30 Resp 18 10/03/16 14:30 BP 131/84 10/03/16 14:30 Pulse Ox 98 10/03/16 14:30 Family History: States: No Known Family Hx - Social History Hx Alcohol Use: No Hx Substance Use: No - Immunization History Hx Tetanus Toxoid Vaccination: Yes Hx Influenza Vaccination: Yes Hx Pneumococcal Vaccination: No Review Of Systems Except As Marked, All Systems Reviewed And Found Negative. Constitutional: Negative for: Fever Gastrointestinal: Negative for: Nausea, Vomiting, Abdominal Pain, Diarrhea, Constipation Genitourinary: Negative for: Dysuria Neurological: Negative for: Weakness, Numbness Physical Exam - Physical Exam Appears: Well, Non-toxic, No Acute Distress Skin: Warm, Dry Head: Atraumatic, Normacephalic Eye(s): bilateral: Normal Inspection, PERRL, EOMI Oral Mucosa: Moist Chest: Symmetrical, No Tenderness Cardiovascular: Rhythm Regular, No Murmur Respiratory: Normal Breath Sounds, No Rales, No Rhonchi, No Stridor Gastrointestinal/Abdominal: Soft, Tenderness (Mild tenderness to the lwoer abdomen in the area of the incision scars. ), No Guarding, No Rebound Extremity: Normal ROM, No Swelling Neurological/Psych: Oriented x3, Normal Speech, Normal Motor Gait: Steady ED Course And Treatment - Laboratory Results Urine POC: Positive O2 Sat by Pulse Oximetry: 100 - CT Scan/US US - Transvaginal Other Rad Studies (CT/US): Read By Radiologist, Radiology Report Reviewed CT/US Interpretation: HISTORY: bleeding. COMPARISON: Pelvic ultrasound 2016. TECHNIQUE: Transabdominal and transvaginal. FINDINGS: UTERUS: Measures 8.1 x 3.9 x 4.4 cm. Normal in size and appearance. No fibroid or other mass lesion seen. ENDOMETRIUM: Measures 10 mm in diameter. Tiny cystic structure identified within the endometrial echo complex, measuring 3 mm in diameter. This may represent an early intrauterine gestation and followup is advised. It is out of range for determination of gestational age by gestational sac diameter. CERVIX: No cervical abnormality identified. RIGHT OVARY: Measures 2.6 x 2.1 x 2.2 cm. No solid mass. Normal flow. There is a simple right adnexal cyst, not immediately adjacent to the right ovary, measuring 4 x 4 x 6 mm. Possible small para ovarian cyst. This was not demonstrated on prior ultrasound. This is of no probable clinical significance. Please note that complex shadowing right adnexal structure seen on prior ultrasound examination is not demonstrated on this examination. In retrospect, this likely represents a bowel loop. LEFT OVARY: Measures 3.5 x 2.2 x 3.0 cm. No solid mass. Normal flow. Corpus luteum again identified within the left ovary, measuring 1.5 x 1.8 x 2.0 cm. Characteristic peripheral hypervascularity is demonstrated. FREE FLUID: No significant free fluid noted. OTHER FINDINGS: None. IMPRESSION: 4 mm intrauterine cystic structure , possibly early intrauterine gestation. Cannot exclude ectopic . No ectopic positively identified. Followup with transvaginal ultrasound and serial beta HCG is advised. No other significant abnormality. Progress Note: Case discussed and patient evaluated by Dr alfred who request methotrexate 84 mg IM and repeat beta Hcg on 10/06. Treated with Methotrexate 84 mg IM. On re-evaluation abdomen soft, patient understands plan Reassessment Condition: Unchanged Medical Decision Making Medical Decision Making: PLAN: * US - Transvaginal * BETA Quant Disposition Counseled Patient/Family Regarding: Studies Performed, Diagnosis, Need For Followup - Disposition Referrals: Ammy Alfred MD [Staff Provider] - Disposition: HOME/ ROUTINE Disposition Time: 14:00 Condition: STABLE Additional Instructions: Return to ED if any increase symptoms Follow up on friday 10/06 for repeat bleed test Follow up on monday 10/09 for repeat bleed work Instructions: Threatened Miscarriage (ED) Print Language: [place] ISLANDER - POA Present On Arrival: None - Clinical Impression Clinical Impression: of unknown anatomic location, Miscarriage - PA / SENIOR CONTROLLER / Resident Statement MD/DO has reviewed & agrees with the documentation as recorded. - Scribe Statement The provider has reviewed the documentation as recorded by the Scribe Diana Ling All medical record entries made by the Jerseyibe were at my direction and personally dictated by me. I have reviewed the chart and agree that the record accurately reflects my personal performance of the history, physical exam, medical decision making, and the department course for this patient. I have also personally directed, reviewed, and agree with the discharge instructions and disposition.
--- NOTE | 2016-10-03 11:06 | US ---
HISTORY: bleeding COMPARISON: Pelvic ultrasound 09/27/2016 TECHNIQUE: Transabdominal and transvaginal FINDINGS: UTERUS: Measures 8.1 x 3.9 x 4.4 cm. Normal in size and appearance. No fibroid or other mass lesion seen. ENDOMETRIUM: Measures 10 mm in diameter. Tiny cystic structure identified within the endometrial echo complex, measuring 3 mm in diameter. This may represent an early intrauterine gestation and followup is advised. It is out of range for determination of gestational age by gestational sac diameter. CERVIX: No cervical abnormality identified. RIGHT OVARY: Measures 2.6 x 2.1 x 2.2 cm. No solid mass. Normal flow. There is a simple right adnexal cyst, not immediately adjacent to the right ovary, measuring 4 x 4 x 6 mm. Possible small para ovarian cyst. This was not demonstrated on prior ultrasound. This is of no probable clinical significance. Please note that complex shadowing right adnexal structure seen on prior ultrasound examination is not demonstrated on this examination. In retrospect, this likely represents a bowel loop. LEFT OVARY: Measures 3.5 x 2.2 x 3.0 cm. No solid mass. Normal flow. Corpus luteum again identified within the left ovary, measuring 1.5 x 1.8 x 2.0 cm. Characteristic peripheral hypervascularity is demonstrated. FREE FLUID: No significant free fluid noted. OTHER FINDINGS: None. IMPRESSION: 4 mm intrauterine cystic structure, possibly early intrauterine gestation. Cannot exclude ectopic . No ectopic positively identified. Followup with transvaginal ultrasound and serial beta HCG is advised. No other significant abnormality.
[2016-10-03] MEDS ORDERED: Methotrexate 50 mg/2 ml Inj IM STA (12:51)
[2016-10-03 14:31] VITALS: BP 131/84; TEMP 97.3
[2016-10-03 16:54] VITALS: O2SAT 100
--- NOTE | 2016-10-03 22:00 | CP.PCM.CON ---
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 Patient with no complaints today: minimal incisional discomfort, pain 08/03. Denies nausea, vomiting. (+) BM. Patient here for repeat quant HCG and in this case, transvaginal ultrasound for evaluation of . Quant HCG increased to 430 MIU 09/29/16. 10/01, HCG 535; today 602. TV ultrasound noted for thickened endometrial stripe, 1.02 cm, with 4 mm cystic structure, no evidence of ectopic ; grossly normal ovaries bilaterally , with residual left corpus luteal cyst and new right ovarian cyst Review of Systems - Review of Systems All systems: reviewed and no additional remarkable complaints except (as per HPI ) Past Patient History - Infectious Disease Hx of Infectious Diseases: None - Past Medical History & Family History Past Medical History?: No - Past Social History Smoking Status: Never Smoked - CARDIAC Hx Cardiac Disorders: No - PULMONARY Hx Respiratory Disorders: No - NEUROLOGICAL Hx Neurological Disorder: No - HEENT Hx HEENT Problems: No - ENDOCRINE/METABOLIC Hx Endocrine Disorders: No - HEMATOLOGICAL/ONCOLOGICAL Hx Blood Disorders: No - INTEGUMENTARY Hx Dermatological Problems: No - MUSCULOSKELETAL/RHEUMATOLOGICAL Hx Musculoskeletal Disorders: No Hx Falls: No - GASTROINTESTINAL Hx Gastrointestinal Disorders: No - GENITOURINARY/GYNECOLOGICAL Hx Genitourinary Disorders: No - PSYCHIATRIC Hx Substance Use: No - SURGICAL HISTORY Hx Surgeries: Yes Hx Section: Yes (2006) Other/Comment: ECTOPIC - ANESTHESIA Hx Anesthesia: Yes Hx Anesthesia Reactions: No Meds Allergies/Adverse Reactions: Allergies Allergy/AdvReac Type Severity Reaction Status Date / Time No Known Allergies Allergy Verified 10/01/16 08:02 Physical Exam - Constitutional Appears: Well, No Acute Distress - Eye Exam Eye Exam: Normal appearance - ENT Exam ENT Exam: Mucous Membranes Moist - Respiratory Exam Respiratory Exam: NORMAL BREATHING PATTERN - Cardiovascular Exam Cardiovascular Exam: REGULAR RHYTHM - GI/Abdominal Exam GI & Abdominal Exam: Normal Bowel Sounds (Healing laparoscopic sites: umbilical , RLQ and LLQ), Soft - Extremities Exam Extremities exam: Positive for: normal inspection - Neurological Exam Neurological exam: Alert, Oriented x3 - Psychiatric Exam Psychiatric exam: Normal Affect, Normal Mood - Skin Skin Exam: Dry, Intact, Normal Color, Warm Results - Vital Signs Recent Vital Signs: Last Vital Signs Temp 97.3 F L 10/03/16 14:30 Pulse 84 10/03/16 14:30 Resp 18 10/03/16 14:30 BP 131/84 10/03/16 14:30 Pulse Ox 100 10/03/16 16:54 - Labs Labs: Laboratory Results - last 24 hr 10/03/16 08:03 Beta HCG, Quant 602.97 Assessment & Plan - Assessment and Plan (Free Text) Assessment: Lab and ultrasound results reviewed by me personally. Maik Nagy R.N. served as molded grid and parts inspector Results of serial HCG and today's ultrasound were discussed with patient. She was given the option of returning Saturday for another HCG level. If no increase by at least 50%, possibility of ectopic is high. If declines, impending loss is evident. Lastly, level may increase. It was explained to patient that it is too early to see an intrauterine and that even though an ectopic was not appreciated, the possibility of an intrauterine versus ectopic still exists. Patient also advised that if level on Saturday plateaus, she would be counseled to be given methotrexate then. Patient suggested taking it today before I was able to mention this as an option for today. She explained that she has accepted the is abnormal. Patient has opted to receive methotrexate today; and to forego returning Saturday for quant HCG. Patient offered no further questions. Patient is clinically stable Plan: 1) give methotrexate 50 mg/metres squared (84.5 mg) IM x 1 2) Return to E.D. Day 4 (10/06/16) and Day 7 (10/09/16) for quant HCG 3) Anticipate follow up in [facility], Dr. Gustafson when termination has been confirmed by zero HGC results 4) Instructions given to return to E.D. for severe abdominal pain, shoulder pain , loss of consciousness. - Date & Time Date: 10/03/16 Time: 12:45
== END 2016-10-03 14:31 | disposition home or self-care (01) ==
LOC: C.ER 07:42
DX: O03.9 Complete or unspecified spontaneous abortion without complication (principal)
CPT/HCPCS: 76830; 76856; 84702; 96372; 99283; J9250

== ENCOUNTER 2016-10-06 11:39 | Emergency (ER) | payer SELFPAY ==
[2016-10-06 11:40] VITALS: BMI 26.2
[2016-10-06 12:21] VITALS: O2SAT 100
--- NOTE | 2016-10-06 12:49 | C.PDOC ---
History Of Present Illness 31-year-old female, presents to the emergency department for repeat beta count. Patient was seen in ED on 10/03 s/p laproscopy for ruptured ectopic. Denies new symptoms since prior evaluation. No other complaints at this time. FOR REPEAT BETA. SEEN 10/03, SP LAP FOR RUPTURED ECTOPIC. DENIES NEW SX SINCE PRIOR EVAL EXAM NEG Time Seen by Provider: 10/06/16 12:25 Chief Complaint (Nursing): Female Genitourinary History Per: Patient History/Exam Limitations: no limitations Past Medical History Reviewed: Historical Data, Nursing Documentation, Vital Signs Vital Signs: Last Vital Signs Temp 98 F 10/06/16 14:23 Pulse 82 10/06/16 14:23 Resp 18 10/06/16 14:23 BP 124/75 10/06/16 14:23 Pulse Ox 100 10/06/16 14:23 Family History: States: Unknown Family Hx - Social History Hx Alcohol Use: No Hx Substance Use: No - Immunization History Hx Tetanus Toxoid Vaccination: Yes Hx Influenza Vaccination: Yes Hx Pneumococcal Vaccination: No Review Of Systems Except As Marked, All Systems Reviewed And Found Negative. Constitutional: Negative for: Fever, Chills Gastrointestinal: Negative for: Vomiting Genitourinary: Negative for: Dysuria, Frequency Skin: Negative for: Rash Neurological: Negative for: Weakness, Numbness Physical Exam - Physical Exam Appears: Non-toxic, No Acute Distress Skin: Warm, Dry, No Rash Head: Atraumatic, Normacephalic Eye(s): bilateral: Normal Inspection, PERRL Nose: Normal Oral Mucosa: Moist Lips: Normal Appearing Neck: Normal ROM Respiratory: No Accessory Muscle Use Extremity: Normal ROM Neurological/Psych: Oriented x3, Normal Speech ED Course And Treatment - Laboratory Results Result Diagrams: 10/06/16 13:09 O2 Sat by Pulse Oximetry: 100 Disposition Counseled Patient/Family Regarding: Studies Performed, Diagnosis, Need For Followup - Disposition Referrals: Consumer Relations Complaint Clerk Service [Outside] [facility] [Outside] [facility] EMERGENCY DEPARTMENT [Provider Group] Disposition: HOME/ ROUTINE Disposition Time: 14:06 Condition: GOOD Additional Instructions: MAYER NIVEL DE HORMONA DE EMBARAZO EST RIGOBERTO COMPARADO CON ANTERIORMENTE. REGRESE MITCHELL SE ADVIERTE PARA REPETIR EL NIVEL DE SARWAT. Forms: Gen Discharge Inst Ugandan Print Language: CHILEAN - Clinical Impression Clinical Impression: Complete miscarriage - Scribe Statement The provider has reviewed the documentation as recorded by the Scribe Jameson James All medical record entries made by the Jerseyibe were at my direction and personally dictated by me. I have reviewed the chart and agree that the record accurately reflects my personal performance of the history, physical exam, medical decision making, and the department course for this patient. I have also personally directed, reviewed, and agree with the discharge instructions and disposition.
[2016-10-06 13:17] LABS: BASO % 0.5 % (0.0-2.0); EOS # 0.1 K/uL (0.0-0.7); EOS % 1.2 % (0.0-4.0); HEMATOCRIT 35.5 % (34.0-47.0); LYMPH # 2.3 K/uL (1.0-4.3); LYMPH % 31.3 % (20.0-40.0); MEAN CELL VOLUME 86.2 fL (81.0-99.0); MEAN CORPUSCULAR HEMOGLOBIN 27.1 pg (27.0-31.0); MEAN CORPUSCULAR HGB CONC 31.4 g/dL (33.0-37.0); MEAN PLATELET VOLUME 7.9 fL (7.2-11.7); MONO # 0.4 K/uL (0.0-0.8); NRBC % 0.1 % (0.0-2.0); RED CELL DISTRIBUTION WIDTH 15.3 % (11.5-14.5); WHITE BLOOD COUNT 7.2 K/uL (4.8-10.8)
[2016-10-06 14:26] VITALS: BP 124/75; PULSE 82; RESP 18; TEMP 98
== END 2016-10-06 14:26 | disposition home or self-care (01) ==
LOC: C.ER 11:39
DX: O03.9 Complete or unspecified spontaneous abortion without complication (principal)

== ENCOUNTER 2016-10-09 12:11 | Emergency (ER) | payer SELFPAY ==
[2016-10-09 12:12] VITALS: BMI 26.2
--- NOTE | 2016-10-09 13:20 | C.PDOC ---
History Of Present Illness Patient is a 31 year old female who presents to the ER for a repeat bhcg after ectopic . Patient was last seen on 10/06/16. Denies any pain or vaginal bleeding. Time Seen by Provider: 10/09/16 12:30 Chief Complaint (Nursing): Medical Clearance History Per: Patient History/Exam Limitations: no limitations Current Symptoms Are (Timing): Still Present Past Medical History Reviewed: Historical Data, Nursing Documentation, Vital Signs Vital Signs: Last Vital Signs Temp 97.4 F L 10/09/16 15:39 Pulse 84 10/09/16 15:39 Resp 16 10/09/16 15:39 BP 122/84 10/09/16 15:39 Pulse Ox 99 10/09/16 15:39 - Medical History PMH: No Chronic Diseases Surgical History: No Surg Hx Family History: States: Unknown Family Hx - Social History Hx Alcohol Use: No Hx Substance Use: No - Immunization History Hx Tetanus Toxoid Vaccination: Yes Hx Influenza Vaccination: Yes Hx Pneumococcal Vaccination: No Review Of Systems Constitutional: Negative for: Fever, Weakness, Malaise Cardiovascular: Negative for: Chest Pain, Palpitations Respiratory: Negative for: Shortness of Breath Gastrointestinal: Negative for: Vomiting, Abdominal Pain Genitourinary: Negative for: Vaginal Bleeding, Pelvic Pain Neurological: Negative for: Headache, Dizziness Physical Exam - Physical Exam Appears: Well, Non-toxic, No Acute Distress Skin: Normal Color, Warm, Dry Head: Atraumatic, Normacephalic Eye(s): bilateral: Normal Inspection, EOMI Oral Mucosa: Moist Neck: Normal ROM Chest: Symmetrical, No Tenderness Cardiovascular: Rhythm Regular, No Murmur Respiratory: Normal Breath Sounds, No Rales, No Rhonchi, No Wheezing Gastrointestinal/Abdominal: Soft, No Tenderness, No Distention, No Guarding Extremity: Bilateral: Atraumatic, Normal ROM Neurological/Psych: Oriented x3, Normal Speech, Other (No focal deficits.) ED Course And Treatment O2 Sat by Pulse Oximetry: 100 Medical Decision Making Medical Decision Making: Impression: 31 year old female requesting BHCG test, last BHCG was 302. Plan: Beta-HCG Progress: BHCG increased to 392 1420 Spoke with obgyn medicare contact specialist DR Sparks and discussed lab result. DR Sparks recommends additional Methotrexate dose in ER, then to repeat BHCG Day 3 and day 7. Explain results to patient and plan for additional Methotrexate dose in ED. Patient agrees and will return in 3 days and one week for repeat BHCG. Patient remained stable during ED evaluation. Disposition Counseled Patient/Family Regarding: Studies Performed, Diagnosis, Need For Followup - Disposition Referrals: Head Of Housekeeping Service [Outside] [facility] [Outside] [facility] [Outside] Disposition: HOME/ ROUTINE Disposition Time: 15:15 Condition: STABLE Additional Instructions: Mariluz laboratorios muestran embarazo BHCG fue 392 y tratados con metotrexato para el embarazo ectpico Debe regresar a ED en 3 sage el viernes 21 de zuhair y el carol 25 para repetir BHCG Si usted desarrolla un empeoramiento lux del dolor o un sangrado abundante, puede volver al servicio de urgencias Instructions: Ectopic (ED) Print Language: ENGLISH - POA Present On Arrival: None - Clinical Impression Clinical Impression: Ectopic , Encounter for monitoring of methotrexate therapy - Scribe Statement The provider has reviewed the documentation as recorded by the Scribe Doni Crowley All medical record entries made by the Scribe were at my direction and personally dictated by me. I have reviewed the chart and agree that the record accurately reflects my personal performance of the history, physical exam, medical decision making, and the department course for this patient. I have also personally directed, reviewed, and agree with the discharge instructions and disposition.
[2016-10-09] MEDS ORDERED: Methotrexate 50 mg/2 ml Inj IM ONE (14:24)
[2016-10-09 15:39] VITALS: BP 122/84; PULSE 84; RESP 16; TEMP 97.4
[2016-10-10 13:46] VITALS: O2SAT 100
== END 2016-10-09 15:39 | disposition home or self-care (01) ==
LOC: C.ER 12:11
DX: O00.90 Unspecified ectopic pregnancy without intrauterine pregnancy (principal)
CPT/HCPCS: 84702; 96372; 99282; J9250

== ENCOUNTER 2016-10-15 10:58 | Emergency (ER) | payer SELFPAY ==
[2016-10-15 10:59] VITALS: BMI 26.2
[2016-10-15 11:03] VITALS: RESP 18; O2SAT 100
[2016-10-15 11:59] VITALS: BP 124/83; PULSE 77; TEMP 98
--- NOTE | 2016-10-15 12:17 | C.PDOC ---
History Of Present Illness 31 year old female returned to the ED as instructed for a repeated Beta labs. Patient is s/p 2 doses of Methotrexate given october 03 and with last Beta lab work October 09 with beta count at 392. Patient did not follow up with October 11 appointment as told. Patient denies vaginal bleeding or discharge at this time but notes symptoms during previous visits. Patient denies dysuria, fever, chills , or any complaints at this time. Chief Complaint (Nursing): Medical Clearance History Per: Patient History/Exam Limitations: no limitations Onset/Duration Of Symptoms: Days Current Symptoms Are (Timing): Still Present Severity: Mild Past Medical History Reviewed: Historical Data, Nursing Documentation, Vital Signs Vital Signs: Last Vital Signs Temp 98 F 10/15/16 11:57 Pulse 77 10/15/16 11:57 Resp 18 10/15/16 11:57 BP 124/83 10/15/16 11:57 Pulse Ox 100 10/15/16 13:37 Family History: States: Unknown Family Hx - Social History Hx Alcohol Use: No Hx Substance Use: No - Immunization History Hx Tetanus Toxoid Vaccination: Yes Hx Influenza Vaccination: Yes Hx Pneumococcal Vaccination: No Review Of Systems Except As Marked, All Systems Reviewed And Found Negative. Constitutional: Negative for: Fever, Chills Genitourinary: Negative for: Dysuria, Vaginal Discharge, Vaginal Bleeding Physical Exam - Physical Exam Appears: Non-toxic, No Acute Distress Skin: Warm, Dry Head: Atraumatic, Normacephalic Eye(s): bilateral: Normal Inspection Cardiovascular: Rhythm Regular, No Murmur Respiratory: Normal Breath Sounds, No Rales, No Rhonchi, No Wheezing Gastrointestinal/Abdominal: Soft, No Tenderness Pelvic: Normal External Exam, No Vaginal Bleeding, No Vaginal Discharge Neurological/Psych: Oriented x3, Normal Speech, Normal Cognition ED Course And Treatment O2 Sat by Pulse Oximetry: 100 (Room air) Pulse Ox Interpretation: Normal Medical Decision Making Medical Decision Making: Plans: -Beta labs -Reassess and disposition Patient told her beta HCG and was told to follow up with OBGYN within 2 days. Disposition - Disposition Referrals: Custom Protection Officer Service [Outside] [facility] [Outside] [facility] [Outside] Disposition: HOME/ ROUTINE Disposition Time: 12:30 Condition: IMPROVED Additional Instructions: Thank you for letting us take care of you today. Your provider was Dr. Gregory. You were here for repeat blood work. The emergency medical care you received today was directed at your acute symptoms. If you were prescribed any medication, please fill it and take as directed. It may take several days for your symptoms to resolve. Return to the Emergency Department if your symptoms worsen, do not improve, or if you have any other problems. Please contact your doctor or call one of the physicians/clinics you have been referred to that are listed on the Patient Visit Information form that is included in your discharge packet. Bring any paperwork you were given at discharge with you along with any medications you are taking to your follow up visit. Our treatment cannot replace ongoing medical care by a primary care provider (PCP) outside of the emergency department. Thank you for allowing the [facility] team to be part of your care today. Follow up with MAINTENANCE MECHANIC in 2-3 days to be re-evaluated. Instructions: Spontaneous Miscarriage (ED) Forms: Gen Discharge Inst [employer], Work Excuse Print Language: EGYPTIAN - Clinical Impression Clinical Impression: Vomiting during - Scribe Statement The provider has reviewed the documentation as recorded by the Scribe Anastacio saavedra All medical record entries made by the Scribe were at my direction and personally dictated by me. I have reviewed the chart and agree that the record accurately reflects my personal performance of the history, physical exam, medical decision making, and the department course for this patient. I have also personally directed, reviewed, and agree with the discharge instructions and disposition.
== END 2016-10-15 11:59 | disposition home or self-care (01) ==
LOC: C.ER 10:58
DX: O21.9 Vomiting of pregnancy, unspecified (principal)

== ENCOUNTER 2017-11-11 17:29 | Emergency (ER) | payer SELFPAY ==
[2017-11-11 17:30] VITALS: BMI 26.2
[2017-11-11 19:23] LABS: HCG,QUALITATIVE URINE NEGATIVE (NEGATIVE); SQUAMOUS EPITHIAL 2 /hpf (0-5); URINE BILIRUBIN NEGATIVE (NEGATIVE); URINE CLARITY Clear (Clear); URINE COLOR Yellow (YELLOW); URINE GLUCOSE (UA) NORMAL (Normal); URINE LEUKOCYTE ESTERASE NEG Leu/uL (Negative); URINE PROTEIN NEGATIVE (NEGATIVE); URINE UROBILINOGEN NORMAL mg/dL (0.2-1.0)
[2017-11-11 19:25] LABS: URINE BLOOD TRACE (NEGATIVE)
[2017-11-11] MEDS ORDERED: Belladonna-Phenobarbital PO STA (20:30)
[2017-11-11] MEDS ORDERED: Sodium Chloride 0.9% 1,000 ML IV ONE (20:30)
[2017-11-11] MEDS ORDERED: Aluminum Hydroxide/Magnesium Hydroxide Susp (30 mL) PO STA (20:30)
[2017-11-11] MEDS ORDERED: Iodixanol 320 MG/ML 100 ML BOTTLE IV ONE (20:39)
[2017-11-11 20:41] LABS: BASO # 0.1 K/uL (0.0-0.2); BASO % 0.7 % (0.0-2.0); EOS # 0.3 K/uL (0.0-0.7); EOS % 3.5 % (0.0-4.0); HEMOGLOBIN 12.6 g/dL (11.0-16.0); LYMPH # 2.8 K/uL (1.0-4.3); LYMPH % 32.8 % (20.0-40.0); MEAN CELL VOLUME 86.4 fL (81.0-99.0); MEAN CORPUSCULAR HEMOGLOBIN 29.2 pg (27.0-31.0); MEAN CORPUSCULAR HGB CONC 33.8 g/dL (33.0-37.0); MEAN PLATELET VOLUME 8.3 fL (7.2-11.7); MONO # 0.6 K/uL (0.0-0.8); MONO % 7.7 % (0.0-10.0); NEUT # 4.6 K/uL (1.8-7.0); NEUT % 55.3 % (50.0-75.0); NRBC % 0.1 % (0.0-2.0); RBC 4.32 Mil/uL (3.80-5.20); RED CELL DISTRIBUTION WIDTH 14.9 % (11.5-14.5); WHITE BLOOD COUNT 8.4 K/uL (4.8-10.8)
[2017-11-11] MEDS ORDERED: Aluminum Hydroxide/Magnesium Hydroxide Susp (30 mL) ONE (20:46)
[2017-11-11] MEDS ORDERED: Belladonna-Phenobarbital ONE (20:46)
[2017-11-11] MEDS ORDERED: Sodium Chloride 0.9% 1,000 ML ONE (20:46)
[2017-11-11 20:52] LABS: ALB/GLOB RATIO 1.2 (1.0-2.1); ALBUMIN 3.7 g/dL (3.5-5.0); ALT/SGPT 28 U/L (9-52); AST/SGOT 27 U/L (14-36); BLOOD UREA NITROGEN 12 mg/dL (7-17); CALCIUM 8.8 mg/dl (8.6-10.4); GFR AFRICAN-AMERICAN > 60; GFR NON-AFRICAN AMERICAN > 60; LIPASE 113 U/L (23-300)
--- NOTE | 2017-11-11 20:56 | C.PDOC ---
History Of Present Illness 32yo female, with history of demise s/p DnC 1 year ago, presents with complaints of abdominal pain for the past 3 days. She reports associated nausea , vomiting and loose stools. She denies any fever, chills, chest pain or shortness of breath. She has no other medical complaints. PMD: None Time Seen by Provider: 11/11/17 18:45 Chief Complaint (Nursing): Abdominal Pain History Per: Patient History/Exam Limitations: no limitations Onset/Duration Of Symptoms: Days Current Symptoms Are (Timing): Still Present Location Of Pain/Discomfort: RLQ, LLQ, Suprapubic Associated Symptoms: Nausea, Vomiting, Diarrhea ("loose stool"). denies: Fever , Chills, Chest Pain Abnormal Vaginal Bleeding: No Past Medical History Reviewed: Historical Data, Nursing Documentation, Vital Signs Vital Signs: Last Vital Signs Temp 98.4 F 11/11/17 22:40 Pulse 67 11/11/17 22:40 Resp 16 11/11/17 22:40 BP 142/89 11/11/17 22:40 Pulse Ox 99 11/12/17 19:02 - Medical History PMH: HTN Surgical History: No Surg Hx Family History: States: No Known Family Hx, Unknown Family Hx - Social History Hx Alcohol Use: No Hx Substance Use: No - Immunization History Hx Tetanus Toxoid Vaccination: No Hx Influenza Vaccination: No Hx Pneumococcal Vaccination: No Review Of Systems Except As Marked, All Systems Reviewed And Found Negative. Constitutional: Negative for: Fever, Chills Eyes: Negative for: Pain, Vision Change, Conjunctivae Inflammation ENT: Negative for: Ear Pain, Ear Discharge, Nose Pain Cardiovascular: Negative for: Chest Pain, Palpitations, Orthopnea Respiratory: Negative for: Shortness of Breath Gastrointestinal: Positive for: Nausea, Vomiting, Abdominal Pain (lower abdomen) Genitourinary: Negative for: Dysuria, Frequency Musculoskeletal: Negative for: Neck Pain, Shoulder Pain, Arm Pain Skin: Negative for: Rash Neurological: Negative for: Weakness, Numbness, Incoordination Psych: Negative for: Anxiety, Depression Physical Exam - Physical Exam Appears: Non-toxic, No Acute Distress Skin: Normal Color, Warm, Dry Head: Atraumatic, Normacephalic Eye(s): bilateral: Normal Inspection Oral Mucosa: Moist Neck: Normal ROM, Supple Chest: Symmetrical Cardiovascular: Rhythm Regular Respiratory: Normal Breath Sounds Gastrointestinal/Abdominal: Soft, Tenderness (diffuse lower abdomen tenderness including suprapubic region, most prominent in right lower quadrant), No Mass, No Guarding, No Rebound Back: Normal Inspection Extremity: Normal ROM Neurological/Psych: Oriented x3 ED Course And Treatment - Laboratory Results Result Diagrams: 11/11/17 20:38 11/11/17 20:38 O2 Sat by Pulse Oximetry: 99 (RA) Pulse Ox Interpretation: Normal - CT Scan/US Abdomen/Pelvis Other Rad Studies (CT/US): Read By Radiologist, Radiology Report Reviewed CT/US Interpretation: CT Scan. . . ABD PELVIS IV CONTRAST ONLY Exam Date: 11/11/17. . This imaging exam was performed at [facility]. EXAM: CT Abdomen and Pelvis With Intravenous Contrast. . EXAM DATE/TIME: Exam ordered 11/11/2017 8:30 PM. . CLINICAL HISTORY: 32 years old, female; Pain; Abdominal pain; Other: Suprapubic pain;. Additional info: Abd pain. . TECHNIQUE: Axial computed tomography images of the abdomen and pelvis with intravenous. contrast. All CT scans at this facility use one or more dose reduction. techniques, viz.: automated exposure control; ma/kV adjustment per patient size. (including targeted exams where dose is matched to indication; i.e. head); or. iterative reconstruction technique. Coronal and sagittal reformatted images were created and reviewed. . CONTRAST: 100 mL of visipaque 320 administered intravenously. . COMPARISON: No relevant prior studies available. . FINDINGS: Lung bases: Unremarkable. No mass. No consolidation. . ABDOMEN: Liver: Unremarkable. No mass. Gallbladder and bile ducts: Unremarkable. No calcified stones. No ductal. dilation. Pancreas: Unremarkable. No mass. No ductal dilation. Spleen: Unremarkable. No splenomegaly. Adrenals: Unremarkable. No mass. Kidneys and ureters: There are 3 calculi in the upper pole of right kidney. They measure 3-4 mm each. In the right kidney there are at least 4. calcifications in the lower pole. The largest measures 3 mm. Stomach and bowel: Unremarkable. No obstruction. No mucosal thickening. . PELVIS: Appendix: No findings to suggest acute appendicitis. Bladder: There appears to be a 2 mm bladder calculus. Reproductive: The uterus is retroverted and retroflexed. . ABDOMEN and PELVIS: Intraperitoneal space: Unremarkable. No free air. No significant fluid. collection. Bones/joints: No acute fracture. No dislocation. Soft tissues: Unremarkable. Vasculature: Unremarkable. No abdominal aortic aneurysm. Lymph nodes: Unremarkable. No enlarged lymph nodes. . IMPRESSION: 1. Bilateral nonobstructing renal calculi. . 2. Bladder calculus. Medical Decision Making Medical Decision Making: Impression: Lower abdominal pain, r/o appendicitis Plan: -- Labs -- CXR -- IV Fluids -- Morphine 2mg IV -- IV Reglan 10mg -- IV Zofran 4mg -- Maalox 30ml PO -- 1tab PO -- Urinalysis Time: 2028 CXR reviewed with no acute findings. CT abdomen and pelvis ordered w/ IV contrast Results: CBC unremarkable, chemistry unremarkable, bicarbonate 20, urine alcohol negative , urine negative ct a/p neg except for multiple non-obstructing kidney stones. Patient is asymptomatic. ready fro dc and continued outpt follow up/. Disposition Counseled Patient/Family Regarding: Diagnosis, Need For Followup, Rx Given - Disposition Referrals: [facility] [place] [Outside] [facility] [Outside] [facility] [Outside] Disposition: HOME/ ROUTINE Disposition Time: 23:12 Condition: GOOD Additional Instructions: return if symptoms worsen or return Prescriptions: Naproxen [Naprosyn] 500 mg PO BID 5 Days #10 tablet Instructions: Nausea and Vomiting, Adult Forms: [facility] (Irish) - Clinical Impression Clinical Impression: Abdominal wall pain, Renal and ureteric calculus - Scribe Statement The provider has reviewed the documentation as recorded by the Jerseyibe (Christy Iglesias) Provider Attestation: All medical record entries made by the Monica were at my direction and personally dictated by me. I have reviewed the chart and agree that the record accurately reflects my personal performance of the history, physical exam, medical decision making, and the department course for this patient. I have also personally directed, reviewed, and agree with the discharge instructions and disposition.
[2017-11-11 22:41] VITALS: BP 142/89; PULSE 67; RESP 16; TEMP 98.4
--- NOTE | 2017-11-11 23:09 | CT ---
EXAM: CT Abdomen and Pelvis With Intravenous Contrast EXAM DATE/TIME: Exam ordered 11/11/2017 8:30 PM CLINICAL HISTORY: 32 years old, female; Pain; Abdominal pain; Other: Suprapubic pain; Additional info: Abd pain TECHNIQUE: Axial computed tomography images of the abdomen and pelvis with intravenous contrast. All CT scans at this facility use one or more dose reduction techniques, viz.: automated exposure control; ma/kV adjustment per patient size (including targeted exams where dose is matched to indication; i.e. head); or iterative reconstruction technique. Coronal and sagittal reformatted images were created and reviewed. CONTRAST: 100 mL of visipaque 320 administered intravenously. COMPARISON: No relevant prior studies available. FINDINGS: Lung bases: Unremarkable. No mass. No consolidation. ABDOMEN: Liver: Unremarkable. No mass. Gallbladder and bile ducts: Unremarkable. No calcified stones. No ductal dilation. Pancreas: Unremarkable. No mass. No ductal dilation. Spleen: Unremarkable. No splenomegaly. Adrenals: Unremarkable. No mass. Kidneys and ureters: There are 3 calculi in the upper pole of right kidney. They measure 3-4 mm each. In the right kidney there are at least 4 calcifications in the lower pole. The largest measures 3 mm. Stomach and bowel: Unremarkable. No obstruction. No mucosal thickening. PELVIS: Appendix: No findings to suggest acute appendicitis. Bladder: There appears to be a 2 mm bladder calculus. Reproductive: The uterus is retroverted and retroflexed ABDOMEN and PELVIS: Intraperitoneal space: Unremarkable. No free air. No significant fluid collection. Bones/joints: No acute fracture. No dislocation. Soft tissues: Unremarkable. Vasculature: Unremarkable. No abdominal aortic aneurysm. Lymph nodes: Unremarkable. No enlarged lymph nodes. IMPRESSION: 1. Bilateral nonobstructing renal calculi. 2. Bladder calculus.
[2017-11-11 23:14] VITALS: O2SAT 99
--- NOTE | 2017-11-12 07:48 | RAD ---
HISTORY: abd pain COMPARISON: None TECHNIQUE: Chest PA and lateral FINDINGS: LUNGS: No focal consolidation is seen. PLEURA: No pleural effusion is identified. CARDIOVASCULAR: Heart size is within normal limits. OSSEOUS STRUCTURES: No acute fracture identified. VISUALIZED UPPER ABDOMEN: Unremarkable. OTHER FINDINGS: None. IMPRESSION: No acute cardiopulmonary process seen.
== END 2017-11-11 23:33 | disposition home or self-care (01) ==
LOC: C.ER 17:29
DX: N20.0 Calculus of kidney (principal); R10.30 Lower abdominal pain, unspecified
CPT/HCPCS: 71046; 74177; 80053; 81001; 83605; 83690; 84703; 85025; 96361; 96374; 96375; 99285; J2270; J2765; J7040; Q9967

== ENCOUNTER 2018-02-02 13:02 | Emergency (ER) | payer OTHER ==
[2018-02-02 13:16] VITALS: BMI 25.2
[2018-02-02] MEDS ORDERED: cefTRIAXone IV 1 gm in Dextros 50 ML IVPB STA (13:26)
[2018-02-02 13:51] LABS: BASO % 0.2 % (0.0-2.0); EOS % 0.2 % (0.0-4.0); HEMOGLOBIN 12.2 g/dL (11.0-16.0); LYMPH # 0.4 K/uL (1.0-4.3); LYMPH % 3.5 % (20.0-40.0); MEAN CELL VOLUME 85.7 fL (81.0-99.0); MEAN CORPUSCULAR HGB CONC 33.9 g/dL (33.0-37.0); MEAN PLATELET VOLUME 7.6 fL (7.2-11.7); MONO # 0.6 K/uL (0.0-0.8); MONO % 4.5 % (0.0-10.0); NEUT # 11.3 K/uL (1.8-7.0); NEUT % 91.6 % (50.0-75.0); PLATELET COUNT 302 K/uL (130-400); RBC 4.18 Mil/uL (3.80-5.20); RED CELL DISTRIBUTION WIDTH 14.4 % (11.5-14.5); WHITE BLOOD COUNT 12.4 K/uL (4.8-10.8)
[2018-02-02 13:58] LABS: INR 1.1
[2018-02-02 14:09] LABS: ALB/GLOB RATIO 1.3 (1.0-2.1); ALBUMIN 3.8 g/dL (3.5-5.0); ALT/SGPT 28 U/L (9-52); AST/SGOT 23 U/L (14-36); BLOOD UREA NITROGEN 8 mg/dL (7-17); CALCIUM 8.4 mg/dl (8.6-10.4); GFR AFRICAN-AMERICAN > 60; GFR NON-AFRICAN AMERICAN > 60
[2018-02-02 14:14] LABS: BANDS 9 % (0-2); BASOPHIL 1 % (0-2); LYMPHOCYTE 4 % (20-40); MONOCYTE 4 % (0-10); NEUTROPHIL 82 % (50-75); PLATELET ESTIMATE NORMAL (NORMAL); TOTAL CELLS COUNTED 100
[2018-02-02 14:31] VITALS: O2SAT 100
[2018-02-02 14:37] LABS: VENOUS BLOOD GAS BASE EXCESS -5.5 mmol/L (0.0-2.0); VENOUS BLOOD GAS PCO2 28 mmHg (40-60); VENOUS BLOOD GAS PO2 46 mm/Hg (30-55); VENOUS BLOOD PH 7.41 (7.32-7.43)
[2018-02-02 14:53] LABS: SQUAMOUS EPITHIAL 3 /hpf (0-5); URINE BACTERIA RARE (<OCC); URINE BILIRUBIN NEGATIVE (NEGATIVE); URINE BLOOD 1+ (NEGATIVE); URINE CLARITY Hazy (Clear); URINE COLOR Yellow (YELLOW); URINE GLUCOSE (UA) NORMAL (Normal); URINE LEUKOCYTE ESTERASE 3+ Leu/uL (Negative); URINE PROTEIN 1+ mg/dL (NEGATIVE); URINE UROBILINOGEN NORMAL mg/dL (0.2-1.0)
[2018-02-02] MEDS ORDERED: Iodixanol 320 MG/ML 100 ML BOTTLE IV ONE (15:01)
--- NOTE | 2018-02-02 17:05 | CT ---
Date of service: 02/02/2018 PROCEDURE: CT Abdomen and Pelvis with contrast HISTORY: b/l flank pain with dysuria COMPARISON: Comparison is made with 11/11/2017 TECHNIQUE: Contrast dose: 100 mL of Visipaque 320. Axial and reformatted coronal sagittal CT images of the abdomen and pelvis were obtained after IV contrast administration. Radiation dose: Total exam DLP = 413.46 mGy-cm. This CT exam was performed using one or more of the following dose reduction techniques: Automated exposure control, adjustment of the mA and/or kV according to patient size, and/or use of iterative reconstruction technique. FINDINGS: LOWER THORAX: Unremarkable. LIVER: Unremarkable. No gross lesion or ductal dilatation. GALLBLADDER AND BILE DUCTS: Unremarkable. PANCREAS: Unremarkable. No gross lesion or ductal dilatation. SPLEEN: Unremarkable. ADRENALS: Unremarkable. No mass. KIDNEYS AND URETERS: There are small bilateral nonobstructing renal calculi. No evidence of hydronephrosis or hydroureter. Again noted is focal cortical defect at the upper pole of the right kidney. There is mild thickening of the ureter oral wall noted. VASCULATURE: Unremarkable. No aortic aneurysm. BOWEL: Unremarkable. No obstruction. No gross mural thickening. APPENDIX: Normal appendix. PERITONEUM: Unremarkable. No free fluid. No free air. LYMPH NODES: Unremarkable. No enlarged lymph nodes. BLADDER: Moderate circumferential urinary bladder wall thickening is noted. REPRODUCTIVE: Unremarkable. BONES: No acute fracture. OTHER FINDINGS: None. IMPRESSION: Small bilateral nonobstructing renal calculi. Diffuse thickening of the bilateral renal collecting system wall and moderate urinary bladder wall thickening suggestive of possible UTI and cystitis. No evidence of significant hydronephrosis. No evidence of other acute pathology in the abdomen and pelvis.
--- NOTE | 2018-02-02 17:24 | C.PDOC ---
History Of Present Illness 32 year old female presents to ED for evaluation of bilateral flank pain, fever , and mild dysuria for the last 2 days. She states her temperature was 101 yesterday. (+) mild nausea. Denies vomiting, diarrhea, abdominal pain, vaginal bleeding, vaginal discharge, recent travel, or sick contact. Time Seen by Provider: 02/02/18 13:25 Chief Complaint (Nursing): Fever History Per: Patient History/Exam Limitations: no limitations Onset/Duration Of Symptoms: Days Current Symptoms Are (Timing): Still Present Sick Contacts (Context): None Associated Symptoms: Fever, Nausea. denies: Vomiting, Diarrhea Recent travel outside of the [place]: No Additional History Per: Patient Past Medical History Reviewed: Historical Data, Nursing Documentation, Vital Signs Vital Signs: Last Vital Signs Temp 98.2 F 02/02/18 17:27 Pulse 87 02/02/18 17:27 Resp 16 02/02/18 17:27 BP 112/71 02/02/18 17:27 Pulse Ox 100 02/02/18 17:33 - Medical History PMH: Denies: HTN (PT DENIES) Family History: States: Unknown Family Hx - Social History Hx Alcohol Use: No Hx Substance Use: No - Immunization History Hx Tetanus Toxoid Vaccination: No Hx Influenza Vaccination: No Hx Pneumococcal Vaccination: No Review Of Systems Except As Marked, All Systems Reviewed And Found Negative. Constitutional: Positive for: Fever Cardiovascular: Negative for: Chest Pain Respiratory: Negative for: Shortness of Breath Gastrointestinal: Positive for: Nausea. Negative for: Vomiting, Abdominal Pain , Diarrhea Genitourinary: Positive for: Dysuria. Negative for: Incontinence, Vaginal Discharge, Vaginal Bleeding Musculoskeletal: Positive for: Back Pain (flank pain) Neurological: Negative for: Weakness, Numbness Physical Exam - Physical Exam Appears: Non-toxic, No Acute Distress Skin: Normal Color, Warm, Dry Head: Atraumatic, Normacephalic Eye(s): bilateral: Normal Inspection Oral Mucosa: Moist Neck: Normal ROM, Supple Cardiovascular: Rhythm Regular Respiratory: Normal Breath Sounds, No Rales, No Rhonchi, No Wheezing Gastrointestinal/Abdominal: Soft, No Tenderness Back: CVA Tenderness (mild bilateral), No Vertebral Tenderness Extremity: Normal ROM Neurological/Psych: Oriented x3, Normal Speech ED Course And Treatment - Laboratory Results Result Diagrams: 02/02/18 13:40 02/02/18 13:40 ECG: Interpreted By Me, Viewed By Me ECG Rhythm: Sinus Rhythm ECG Interpretation: No Acute Changes Interpretation Of ECG: Normal axis, normal intervals. Rate From EC (bpm) O2 Sat by Pulse Oximetry: 100 (RA) Pulse Ox Interpretation: Normal Medical Decision Making Medical Decision Making: Plan: Blood work Blood culture Urinalysis Urine culture CXR EKG Abd & Pelvis CT Zofran, Tylenol, Toradol, Rocephin, IV fluids Reassess Disposition - Disposition Referrals: [facility] [Outside] [facility] [Outside] Disposition: HOME/ ROUTINE Disposition Time: 17:00 Condition: IMPROVED Additional Instructions: KENNEY PENG, thank you for letting us take care of you today. The emergency medical care you received today was directed at your acute symptoms. If you were prescribed any medication, please fill it and take as directed. It may take several days for your symptoms to resolve. Return to the Emergency Department if your symptoms worsen, do not improve, or if you have any other problems. Please contact your doctor or call one of the physicians/clinics you have been referred to that are listed on the Patient Visit Information form that is included in your discharge packet. Bring any paperwork you were given at discharge with you along with any medications you are taking to your follow up visit. Our treatment cannot replace ongoing medical care by a primary care provider outside of the emergency department. Thank you for allowing the [facility] team to be part of your care today. You had a urine culture: It will take several days for the results, if any change in treatment is needed we will contact you. Follow up with the clinic in 3-4 days for re-evaluation and further management. KENNEY PENG, cornell por dejarnos atenderlo hoy. La atencin m dica de emergencia que recibi hoy estaba dirigida a mariluz sntomas agudos. Si le prescribieron algn medicamento, llnelo y tome segn las indicaciones. Mariluz s ntomas pueden tardar varios sage en resolverse. Regrese al Departamento de Emergencia si mariluz sntomas empeoran, no mejoran o si tiene algn otro problema. Comunquese con london mdico o llame a minnie de los mdicos / clnicas a los que mckeon sido referido que figura en el formulario de Informacin de visita del paciente que se incluye en london paquete de jennifer. Traiga todos los documentos que recibi al momento del jennifer junto con los medicamentos que est tomando en london visita de seguimiento. Nuestro tratamiento no puede reemplazar la atencin mdica en curso por un proveedor de atencin primaria fuera del departamento de emergencia. [place] por permitir que el equipo de [facility] sea parte de london cuidado hoy. Usted tuvo un cultivo de orina: wild varios sage para obtener los resultados; si necesita algn cambio en el tratamiento, nos contactaremos con usted. Cedrick un seguimiento con la clnica en 3-4 sage para quirino nueva evaluacin y ms administracin. Prescriptions: Ibuprofen [Motrin] 600 mg PO Q6 PRN #20 tab PRN Reason: Pain, Moderate (4-7) Sulfamethoxazole/Trimethoprim [Bactrim DS 800 mg-160 mg] 1 tab PO BID #20 tab Instructions: Urinary Tract Infection, Adult (DC), Kidney Infection (DC) Forms: Gen Discharge Inst [place] Islander, Nulu ([place] Islander) Print Language: TUVALUAN - Clinical Impression Clinical Impression: UTI (urinary tract infection) - Scribe Statement The provider has reviewed the documentation as recorded by the Scribe KP All medical record entries made by the Scribe were at my direction and personally dictated by me. I have reviewed the chart and agree that the record accurately reflects my personal performance of the history, physical exam, medical decision making, and the department course for this patient. I have also personally directed, reviewed, and agree with the discharge instructions and disposition.
--- NOTE | 2018-02-02 17:25 | RAD ---
Date of service: 02/02/2018 HISTORY: Sepsis Patient COMPARISON: Comparison is made with 11/11/2017 FINDINGS: LUNGS: No active pulmonary disease. PLEURA: No significant pleural effusion identified, no pneumothorax apparent. CARDIOVASCULAR: Normal. OSSEOUS STRUCTURES: No significant abnormalities. VISUALIZED UPPER ABDOMEN: Normal. OTHER FINDINGS: None. IMPRESSION: No active disease.
[2018-02-02 17:28] VITALS: BP 112/71; PULSE 87; RESP 16; TEMP 98.2
--- NOTE | 2018-02-03 23:20 | CARD ---
APPROVED REPORT Date of service: 02/02/2018 EKG Measurement Heart [id number] <Conclusion> Normal sinus rhythm Normal ECG
== END 2018-02-02 17:29 | disposition home or self-care (01) ==
LOC: C.ER 13:02
DX: N39.0 Urinary tract infection, site not specified (principal)
CPT/HCPCS: 36415; 71045; 74177; 80053; 81001; 82803; 83735; 84100; 85025; 85610; 85730; 87040; 87086; 93005; 96361; 96365; 96375; 99285; J0696; J1885; J2405; J7030; Q9967

== ENCOUNTER 2018-08-18 03:47 | Emergency (ER) | payer OTHER ==
[2018-08-18 03:48] VITALS: BMI 25.2
[2018-08-18] MEDS ORDERED: Sodium Chloride 0.9% 1,000 ML IV ONE (04:07)
--- NOTE | 2018-08-18 04:10 | C.PDOC ---
History Of Present Illness 33 year old female with PMHx of kidney stones presents to the ED c/o left flank pain associated with dysuria for the past 2-3 days. Patient denies nausea, vomit, diarrhea, hematuria, vaginal bleeding, vaginal discharge, rash. Chief Complaint (Nursing): Back Pain History Per: Patient History/Exam Limitations: no limitations Onset/Duration Of Symptoms: Days (2-3) Current Symptoms Are (Timing): Still Present Quality Of Discomfort: "Pain" Previous Symptoms: Back Pain Recent travel outside of the [place]: No Additional History Per: Patient Past Medical History Reviewed: Historical Data, Nursing Documentation, Vital Signs Vital Signs: Last Vital Signs Temp 98.7 F 08/18/18 04:00 Pulse 101 H 08/18/18 04:00 Resp 20 08/18/18 04:00 BP 134/94 H 08/18/18 04:00 Pulse Ox 96 08/18/18 04:00 - Medical History PMH: Kidney Stones Denies: HTN (PT DENIES) Surgical History: No Surg Hx Family History: States: Unknown Family Hx - Social History Hx Alcohol Use: No Hx Substance Use: No - Immunization History Hx Tetanus Toxoid Vaccination: No Hx Influenza Vaccination: No Hx Pneumococcal Vaccination: No Review Of Systems Constitutional: Positive for: Fever. Negative for: Chills Cardiovascular: Negative for: Chest Pain, Palpitations Respiratory: Negative for: Shortness of Breath Gastrointestinal: Positive for: Abdominal Pain. Negative for: Nausea, Vomiting, Diarrhea Genitourinary: Positive for: Dysuria Musculoskeletal: Positive for: Back Pain Skin: Negative for: Rash Neurological: Negative for: Weakness, Numbness Physical Exam - Physical Exam Appears: Non-toxic, In Acute Distress (due to pain) Skin: Normal Color, Warm, Dry Head: Atraumatic, Normacephalic Eye(s): bilateral: Normal Inspection Oral Mucosa: Moist Neck: Normal ROM, Supple Chest: Symmetrical Cardiovascular: Rhythm Regular Respiratory: Normal Breath Sounds, No Rales, No Rhonchi, No Wheezing Gastrointestinal/Abdominal: Soft, No Tenderness, No Guarding, No Rebound Back: CVA Tenderness (mild left ) Extremity: Normal ROM, No Tenderness, No Swelling Neurological/Psych: Oriented x3, Normal Speech, Normal Cognition Gait: Steady ED Course And Treatment - Laboratory Results Result Diagrams: 08/18/18 04:27 08/18/18 04:27 O2 Sat by Pulse Oximetry: 96 (ON RA) Pulse Ox Interpretation: Normal - CT Scan/US Ct abd/pelvis Other Rad Studies (CT/US): Read By Radiologist, Radiology Report Reviewed CT/US Interpretation: CT SCAN OF THE ABDOMEN AND PELVIS WITHOUT ORAL OR IV CONT RAST. CLINICAL INDICATION: Left flank pain. TECHNIQUE: Axial and reformatted sagittal and coronal images of the abdomen pelvis obtained without IV contrast administration. COMPARISON: 02/02/2018. FINDINGS: The visualized lung bases are unremarkable. Normal unenhanced liver. Normal gallbladder and extrahepatic biliary system. Normal unenhanced spleen. Normal pancreas. . Normal bilateral adrenal glands. Bilateral nonobstructing renal stones ranging in size between 3 and 5 mm. 4 mm mildly obstructing stone at the left ureterovesical junction. Normal size of the right kidney. There is no right renal mass. There is no right hydronephrosis. Normal visualized right ureter. Normal size of the left kidney. There is no left renal mass. Normal visualized stomach. Normal small intestine. Uncomplicated diverticulosis and moderate amount of fecal residue in the colon. The appendix is visualized and appears normal. There is no demonstrated peritoneal fluid. Normal abdominal aorta. Normal inferior vena cava. Normal retroperitoneum. . Mild diffuse thickening of the urinary bladder. There is no pelvic mass lesion or lymphadenopathy. There is no pelvic fluid. . Normal abdominal wall. Normal osseous structures. IMPRESSION: Obstructing stone of the left ureterovesical junction. . Electronically signed on Aug 18, 2018 5:24:27 AM EST by: Jose David Mcconnell M.D., Certified by KAREN, MSK, Neuroradiology Medical Decision Making Medical Decision Making: Plan: * CT abd/pelvis * Labs * Toradol 30 mg IVP * IV fluids * urine culture * UA Disposition Counseled Patient/Family Regarding: Diagnosis - Disposition Referrals: [facility] [Outside] Disposition: HOME/ ROUTINE Disposition Time: 05:37 Condition: STABLE Prescriptions: Ciprofloxacin [Cipro] 1 tab PO BID #14 tab Tramadol HCl/Acetaminophen [Ultracet Tablet] 1 each PO Q4 #20 tablet Instructions: Renal Colic (DC), Urinary Tract Infections in Adults Forms: [facility] (Turkish), Gen Discharge Inst [place] Islander Print Language: POLISH - POA Present On Arrival: None - Clinical Impression Clinical Impression: UTI (urinary tract infection), Renal colic on left side - Scribe Statement The provider has reviewed the documentation as recorded by the Scribe Zach Howell All medical record entries made by the Scribe were at my direction and personally dictated by me. I have reviewed the chart and agree that the record accurately reflects my personal performance of the history, physical exam, medical decision making, and the department course for this patient. I have also personally directed, reviewed, and agree with the discharge instructions and disposition.
[2018-08-18] MEDS ORDERED: Sodium Chloride 0.9% 1,000 ML ONE (04:28)
[2018-08-18 04:31] LABS: BASO % 0.3 % (0.0-2.0); EOS # 0.1 K/uL (0.0-0.7); EOS % 0.6 % (0.0-4.0); HEMOGLOBIN 12.6 g/dL (11.0-16.0); LYMPH # 0.8 K/uL (1.0-4.3); LYMPH % 6.3 % (20.0-40.0); MEAN CELL VOLUME 87.1 fL (81.0-99.0); MEAN CORPUSCULAR HEMOGLOBIN 28.6 pg (27.0-31.0); MEAN CORPUSCULAR HGB CONC 32.8 g/dL (33.0-37.0); MEAN PLATELET VOLUME 7.8 fL (7.2-11.7); MONO # 1.1 K/uL (0.0-0.8); MONO % 8.5 % (0.0-10.0); NEUT # 11.2 K/uL (1.8-7.0); NEUT % 84.3 % (50.0-75.0); PLATELET COUNT 310 K/uL (130-400); RBC 4.42 Mil/uL (3.80-5.20); RED CELL DISTRIBUTION WIDTH 14.4 % (11.5-14.5); WHITE BLOOD COUNT 13.3 K/uL (4.8-10.8)
[2018-08-18 04:37] LABS: SQUAMOUS EPITHIAL 9 /hpf (0-5); URINE BACTERIA RARE (<OCC); URINE BILIRUBIN NEGATIVE (NEGATIVE); URINE BLOOD NEGATIVE (NEGATIVE); URINE CLARITY Hazy (Clear); URINE COLOR Yellow (YELLOW); URINE GLUCOSE (UA) NORMAL (Normal); URINE LEUKOCYTE ESTERASE 1+ Leu/uL (Negative); URINE PROTEIN 1+ mg/dL (NEGATIVE)
[2018-08-18 04:43] LABS: ALB/GLOB RATIO 1.5 (1.0-2.1); ALBUMIN 3.7 g/dL (3.5-5.0); ALT/SGPT 27 U/L (9-52); AST/SGOT 22 U/L (14-36); BLOOD UREA NITROGEN 7 mg/dL (7-17); CALCIUM 8.5 mg/dl (8.6-10.4); GFR NON-AFRICAN AMERICAN > 60; LIPASE 53 U/L (23-300)
[2018-08-18] MEDS ORDERED: Ciprofloxacin 400mg/200ml D5W 400 MG/200 ML BAG IVPB STA (05:15)
[2018-08-18] MEDS ORDERED: Ciprofloxacin 400mg/200ml D5W 400 MG/200 ML BAG IVPB ONE (05:31)
[2018-08-18 06:50] LABS: BANDS 1 % (0-2); EOSINOPHIL 1 % (0-4); LYMPHOCYTE 3 % (20-40); MONOCYTE 4 % (0-10); NEUTROPHIL 91 % (50-75); PLATELET ESTIMATE NORMAL (NORMAL); TOTAL CELLS COUNTED 100
[2018-08-18 06:53] VITALS: BP 128/83; PULSE 75; RESP 16; TEMP 97.9; O2SAT 99
--- NOTE | 2018-08-18 08:48 | CT ---
Date of service: 08/18/2018 PROCEDURE: CT Abdomen and Pelvis without intravenous contrast HISTORY: left flank pain COMPARISON: None. TECHNIQUE: Multiple contiguous axial images were performed through the abdomen and pelvis without the use of intravenous contrast. Subsequently, sagittal and coronal reformatted images were obtained. Radiation dose: Total exam DLP = 313.07 mGy-cm. This CT exam was performed using one or more of the following dose reduction techniques: Automated exposure control, adjustment of the mA and/or kV according to patient size, and/or use of iterative reconstruction technique. FINDINGS: LOWER THORAX: Unremarkable. LIVER: Unremarkable. No gross lesion or ductal dilatation. GALLBLADDER AND BILE DUCTS: Unremarkable. PANCREAS: Unremarkable. No gross lesion or ductal dilatation. SPLEEN: Unremarkable. ADRENALS: Unremarkable. No mass. KIDNEYS AND URETERS: Right kidney: Multiple scattered nonobstructive calculi for example in the upper pole measuring up to 7.3 millimeters. Left Kidney: Mild fullness of the left renal collecting system with multiple scattered calculi; for example, a 6.2 millimeter calculus seen in the lower pole of the left kidney. 3.6 millimeter calculus seen at the posterior left urinary bladder near the left ureterovesicular junction which may represent an obstructing calculus. VASCULATURE: Unremarkable. No aortic aneurysm. No aortic atherosclerotic calcification or mural plaque present. BOWEL: Unremarkable. No obstruction. No gross mural thickening. APPENDIX: Unremarkable. Normal appendix. PERITONEUM: Unremarkable. No free fluid. No free air. LYMPH NODES: Unremarkable. No enlarged lymph nodes. BLADDER: 3.6 millimeter calculus seen at the posterior left urinary bladder near the left ureterovesicular junction which may represent an obstructing calculus. Thick-walled urinary bladder. REPRODUCTIVE: Heterogeneous uterus and bilateral adnexa. BONES: No acute fracture. OTHER FINDINGS: None. IMPRESSION: Mild hydronephrosis of the left renal collecting system with 3.6 millimeter calculus seen at the posterior left urinary bladder near the left ureterovesicular junction which may represent an obstructing calculus. Bilateral renal calculi. Thick-walled urinary bladder. Additional findings as above. A preliminary report was generated at 5:24 a.m. on 08/18/[address] Jose David Mcconnell from [employer]
== END 2018-08-18 07:14 | disposition home or self-care (01) ==
LOC: C.ER 03:47
DX: N39.0 Urinary tract infection, site not specified (principal); N20.0 Calculus of kidney; Z87.442 Personal history of urinary calculi
CPT/HCPCS: 74176; 80053; 81001; 81025; 83690; 84703; 85025; 87086; 96361; 96365; 96375; 99284; J0744; J1885; J7030